=== PATIENT | female | born 1940 | race Caucasian/White ===

== ENCOUNTER 2020-04-29 06:03 | Inpatient (IN) | payer MEDICARE, BC, SELFPAY ==
[2020-04-29] VITALS (9 sets, daily range): BP systolic 114–130; BP diastolic 73–88; PULSE 66–145; RESP 6–28; TEMP 36.2; O2SAT 88–100; BMI 38.9
--- NOTE | 2020-04-29 06:07 | XACV_ITS ---
Ht: 160 cm Wt: 100 kg BSA: 2.16 m2 Gender: Female : 1940 Exam Priority: Routine Procedure(s): Procedure Description: Diagnostic procedure Procedure Description: PCI procedure Procedure Description: Drug Eluting Coronary Stent Procedure Description: PTCA Procedure Description: Coronary Angiography Diagnostic Findings LM has 0% stenosis. Proximal Left Anterior Descending Coronary Artery: Severe 75% stenosis, SUZY: 3 flow. Mid Left Anterior Descending Coronary Artery: Severe 90% stenosis, SUZY: 2 flow. 1st Diag: Severe 85% stenosis, SUZY: 2 flow. pCIRC: Severe 90% stenosis, SUZY: 3 flow. Mid Circumflex Coronary Artery: Severe 90% stenosis, SUZY: 3 flow. dCIRC: Severe 90% stenosis, SUZY: 3 flow. 1st OM: Moderate 50% stenosis, SUZY: 3 flow. pRCA to dRCA: Severe 99% stenosis, SUZY: 0 flow. Coronary angiography shows right dominance. PCI Status: Urgent PCI Indication: NSTE - ACS Interventional Findings Proximal Left Anterior Descending Coronary Artery: 75% stenosis treated with AB TREK 2.50X12 RX BALLOON, MDT R ALPHONSE 3.0X12 TAWANA, and MDT TRIPP EUPHORA RX 3.62S00XK BALLOON. 0% residual stenosis, SUZY: 3 flow. Mid Left Anterior Descending Coronary Artery: 90% stenosis treated with AB TREK 2.50X12 RX BALLOON, AB TREK 2.50X8 RX BALLOON, and MDT R ALPHONSE 3.0X12 TAWANA. 0% residual stenosis, SUZY: 3 flow. Conclusions There is severe coronary artery disease with three vessel disease. Proximal Left Anterior Descending Coronary Artery was treated with two Balloon and Drug Eluting Stent. Mid Left Anterior Descending Coronary Artery was treated with two Balloon and Drug Eluting Stent. 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 Dr. Friedman from CT surgery was consulted and she was thought not to be a good candidate for coronary artery bypass surgery. It is the reason we proceeded with proximal and mid significant LAD lesion PCI. Left circumflex artery is small caliber diffusely diseased artery with multiple tandem lesion and RCA is chronically occluded artery thought to be treated medically. Post PCI patient was transferred to ICU in a relatively stable condition. Recommendations 1-Return to inpatient for close monitoring and routine cath care 2-Risk factor modification for secondary prevention 3-Statin and aspirin 81 mg life--long, if tolerated 4-Patient was pre-loaded with 600 mg of Plavix, continue Plavix 75mg p.o. daily for at least one year. We will assess at the end of one year again to continue if further or not 5-Continue optimal medical management 6-Follow up with Dr. Bishop in four weeks and your primary care in 10 days . Interventional RX Recommendation: PCI w/o planned CABG Diagnostic RX Recommendation: PCI w/o planned CABG Pressures Phase:Rest AO : 131 mmHg / 117 mmHg ( 121 mmHg ) @ 1:56:00 AM 104 mmHg / 90 mmHg ( 97 mmHg ) @ 2:38:00 AM 29 mmHg / 24 mmHg ( 24 mmHg ) @ 2:47:00 AM 105 mmHg / 87 mmHg ( 96 mmHg ) @ 3:10:00 AM Clinical Evaluation EBL: 5mL-10mL Procedural Details Pre-Procedure Time Out. Identified patient by full name and date of as verbalized by the patient/guarantor. Does the consent match the physician's order: N/A Emergent; Informed Consent not obtained due to time critical life threat. Accurate & Complete Informed Consent: N/A Emergent; Informed Consent not obtained due to time critical life threat. Inpatient/Outpatient History & Physical on Chart: N/A Emergent; Informed Consent not obtained due to time critical life threat. If H&P is completed, is and addenduem needed: N/A Emergent; Informed Consent not obtained due to time critical life threat; If yes, is the addendum complete: N/A Emergent; Informed Consent not obtained due to time critical life threat. Visualize and Verify Site with Patient/Guarantor: N/A. Relevant Radiology Images available: N/A Emergent; Informed Consent not obtained due to time critical life threat. Pre-op teaching completed and patient verbalized understanding. The risks, benefits, and alternatives of sedation and/or procedure were discussed by physician. The patient agrees to continue. Procedure started. Correct patient, site and procedure confirmed by cath team. Current diagnosis: STEMI. PERRLA. 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 Lungs clear x 5 lobes. IV Site on Arrival: 20 gauge in the left wrist. IV Fluids: 0.9% NaCl at KVO. 0 mL infused prior to laboratory director. Oxygen started at 15liters/min via 100% non-rebreather mask. right groin was prepped with chloroprep then draped in the usual sterile fashion. right radial was prepped with chloroprep then draped in the usual sterile fashion. Physician notified. Physician arrived. Equipment: 6F - Radial. Cardiac Cath Pack. ACIST Manifold Kit Model BT 2000. Heparinized Saline (2 units/mL), 1000 mL bag. pt unstable at this time. Baseline sample Acquired. HR: 130 BPM. Physician scrubbed in. Immediate Pre-Procedure Time Out. Correct Patient: Yes; Correct Procedure: Yes; Correct Site: Yes; Correct Patient Position: Yes; Correct Supplies: Yes; Dried Flammable Prep: Yes; Blood Products Available: N/A Emergent; Informed Consent not obtained due to time critical life threat;. Lidocaine 1% infiltrated to the right radial. A 6 andorran JR4 catheter in over wire. Multiple views taken of right coronary artery. Catheter out. A 6 andorran CLS 3 catheter in over wire. Multiple views taken of left coronary artery. HAILE Stoddard was relieved by HAILE Rich as monitoring person. Dr. Friedman contacted. Dr. Friedman arrived. Physicians reviewed films. AP pads placed on patient. Inflation number : 1 A AB TREK 2.50X12 RX BALLOON was prepped and advanced across the Mid LAD , then inflated to 16 MELISSA for 0:17 seconds. Inflation number: 1 The AB TREK 2.50X12 RX BALLOON was reinflated across the Prox LAD, to 18 MELISSA for 0:14 seconds. Balloon out. Guideliner inserted. 3.0x12mm stent inserted but removed intact. Runthrough inserted. [place] wire out. Runthrough wire inserted. Runthrough wire out. Inventory is CRD 6FR JL 4 GUIDE. 6 andorran JL 4 guide catheter was inserted over the wire. Guideliner inserted over the runthrough. Inflation number : 2 A AB TREK 2.50X8 RX BALLOON was prepped and advanced across the Mid LAD , then inflated to 8 MELISSA for 0:10 seconds. Inflation number: 3 The AB TREK 2.50X8 RX BALLOON was reinflated across the Mid LAD, to 8 MELISSA for 0:09 seconds. Inflation Number : 4 A MDT R ALPHONSE 3.0X12 TAWANA -Lot Number# [id number] was prepped and advanced across the Mid LAD. The stent was deployed at 16 MELISSA for 0:24 seconds. Stent expiration date 11-13-2021. Stent balloon out over wire. Inflation Number : 2 A MDT R ALPHONSE 3.0X12 TAWANA -Lot Number# [id number] was prepped and advanced across the Prox LAD. The stent was deployed at 18 MELISSA for 0:26 seconds. Stent expiration date: 11-13-2021. Inflation number : 3 A MDT NC EUPHORA RX [id number] BALLOON was prepped and advanced across the Prox LAD , then inflated to 16 MELISSA for 0:21 seconds. Inflation number: 4 The MDT NC EUPHORA RX [id number] BALLOON was reinflated across the Prox LAD, to 16 MELISSA for 0:07 seconds. Redirected the wire to the Circumflex. Balloon out. guideliner, guide and wire out. 1300ml's urine out. TR band placed. Hemostasis obtained. A TR Band was successful obtaining hemostatsis at the Right Radial artery insertion site. Post Procedure: Pulses reassessed and unchanged. PERRLA. 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 No VTE prophylaxis required. ACT drawn. Results 161 seconds. Therapeutic limits - pre-heparin administration 90-150 seconds and monitoring heparin during a vascular procedure >250 seconds. Vital chart was stopped. Medication's Wasted: Lidocaine 1% = 18 mL. Medication's Wasted: Nitro = 49.8 mg. Medication's Wasted: Other = Fentanyl 25mcg. Medication's Wasted: Heparin = 2000 units. Total IV fluids: 53.6 mL. Contrast type used: Visipaque 320 mgI/mL, 500 mL bottle. PCI Indication: STEMI. Post-op diagnosis: STEMI. Complications: None. Estimated blood loss: 5mL-10mL. Procedure completed. Patient transferred by bed to ICU. Site: Right Radial artery Sheath Size: 6 Fr Hemostasis Method: TR Band Hemostasis Success: Successful Procedure Medications Start: 6:36 AM Stop: 6:36 AM Medication: Versed Amount: 0.5 mg Start: 6:37 AM Stop: 6:37 AM Medication: Fentanyl Amount: 25 mcg Route: I.V. Start: 7:03 AM Stop: 7:03 AM Medication: Heparin Amount: 6000 units Route: I.V. Start: 7:07 AM Stop: 7:07 AM Medication: Aggrastat 12.5 mg/250 mL Amount: 50 ml Route: I.V. bolus Start: 7:09 AM Stop: 7:09 AM Medication: Aggrastat 12.5 mg/250 mL Amount: 18 ml/hr Route: I.V. drip Start: 7:15 AM Stop: 7:15 AM Medication: Lopressor (metoprolol) Amount: 5 mg Route: I.V. Start: 7:19 AM Stop: 7:19 AM Medication: Versed Amount: 0.5 mg Route: I.V. Start: 7:20 AM Stop: 7:20 AM Medication: Fentanyl Amount: 25 mcg Route: I.V. Start: 7:45 AM Stop: 7:45 AM Medication: Versed 1 mg and Fentanyl 25 mcg Amount: 1 Route: I.V. Start: 7:56 AM Stop: 7:56 AM Medication: Nitrogylcerin Amount: 100 mcg Route: I.C. Start: 8:21 AM Stop: 8:21 AM Medication: Heparin Amount: 3000 units Route: I.V. I, the attending physician, have reviewed and verified all procedure medications. Yes, all medications given per verbal order Report Signatures Finalized by:Regi Bishop MD on 05/11/2020 5:10:46 PM
--- NOTE | 2020-04-29 06:13 | XRR_ITS ---
PROCEDURE INFORMATION: Exam: XR Chest, 1 View Exam date and time: 04/29/2020 6:27 AM Age: 80 years old Clinical indication: Dyspnea TECHNIQUE: Imaging protocol: XR of the chest Views: 1 view. COMPARISON: No relevant prior studies available. FINDINGS: Lungs: Emphysema Interstitial prominence diffusely. Whether this is chronic is difficult to ascertain. Possible fibrosis. Recommend follow-up two view chest. Pleural space: Unremarkable. No pleural effusion. No pneumothorax. Heart/Mediastinum: Borderline cardiomegaly Bones/joints: Unremarkable. XR/XR chest 1V portable [id number] IMPRESSION: Interstitial prominence diffusely. Whether this is chronic is difficult to ascertain. Possible fibrosis. Recommend follow-up two view chest.
--- NOTE | 2020-04-29 06:13 | ECG_ITS ---
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 Measurements Intervals [place] Rate: 145 P: NC: -1 QRS: 42 QRSD: 64 T: 173 QT: 172 QTc: 268 Interpretive Statements ATRIAL FIBRILLATION WITH RAPID VENTRICULAR RESPONSE MARKED ST DEPRESSION, CONSIDER SUBENDOCARDIAL INJURY [0.2+ mV ST DEPRESSION] ACUTE [place] No previous ECG available for comparison Electronically Signed On 04-29-2020 20:42:14 CDT by Regi Bishop M.D. [id number] f
--- NOTE | 2020-04-29 06:15 | W.ED.CHESTPA ---
HPI - Chest Pain General: Chief Complaint: Chest Pain Stated Complaint: CP Time Seen by Provider: 04/29/20 06:12 History of Present Illness: HPI narrative: Patient presents via EMS as a STEMI. 80-year-old diabetic female. She denies any known history of coronary disease she has had chest pain intermittently the last couple of days. She began having increasing chest pain while at rest this morning EKG shows ST elevation in 2 and aVF. With reciprocal changes. MD complaint: chest pain Pertinent past history: other (Diabetes mellitus) Onset (ago): day(s) Timing of current episode: episodic Prior episodes: Yes Onset: during rest Pain location: substernal and left chest Severity: severe Quality: tightness and heaviness Relieving factors: nothing Exacerbating factors: exertion Associated symptoms: Reports diaphoresis, dyspnea and nausea; Deny fever(s) Treatment prior to arrival: oxygen Review of Systems Const: Reports: diaphoresis; Denies: fever(s), chills or body aches ENMT: Denies: throat pain, ear or mastoid pain, nasal discharge or nasal congestion Card: Denies: chest pain, edema, dyspnea on exertion or orthopnea Resp: Reports: dyspnea GI: Reports: nausea : Denies: flank pain, difficulty voiding, dysuria, urinary frequency or urinary urgency Skin/Breast: Denies: rash or pruritus PFSH ED PFSH: Medical History (Updated 04/29/20 @ 06:20 by Lester Hernandez DO) Diabetes mellitus Hypertension Obesity Surgical History (Updated 04/29/20 @ 06:18 by Lester Hernandez DO) Status post total shoulder arthroplasty Social History (Updated 04/29/20 @ 06:18 by Lester Hernandez DO) Smoking and tobacco status: former smoker Alcohol intake: never Physical Exam Const: COMMON NORMALS: no acute distress GENERAL APPEARANCE: cooperative and comfortable ORIENTATION/CONSCIOUSNESS: Yes awake, Yes oriented to person, Yes oriented to place and Yes oriented to time HENMT: COMMON NORMALS: normocephalic, atraumatic, hearing grossly normal bilaterally, external ears normal, EAC's normal, TM's normal bilaterally, Normal nasal mucous membranes and turbinates present, moist oral mucous membranes and oropharynx normal HEAD & SCALP: normocephalic and atraumatic NOSE: Normal nasal mucous membranes and turbinates present EXTERNAL EAR: Yes external ears normal EXTERNAL AUDITORY CANAL: EAC's normal TYMPANIC MEMBRANE: TM's normal bilaterally Eye: COMMON NORMALS: Equal, round and reactive pupils present, EOMs intact bilaterally, conjunctivae normal and no scleral icterus CONJUNCTIVA: Yes conjunctivae normal PUPIL: Yes Equal, round and reactive pupils present Neck/C-Spine: COMMON NORMALS: full ROM, no lymphadenopathy, supple and no JVD Lymph: LYMPHATIC: no lymphadenopathy noted and no lymphedema noted Resp: COMMON NORMALS: normal respiratory effort, No retractions and No use of accessory muscles AUSCULTATION: crackles Laterality: bilateral (Throughout bilaterally) Cardio: COMMON NORMALS: no JVD, regular rate, regular rhythm and No murmurs present (Cardio) RATE: regular rate RHYTHM: regular rhythm GI: COMMON NORMALS: Soft to palpation and No hepatosplenomegaly present AUSCULTATION: Yes normoactive bowel sounds PALPATION: Yes Soft to palpation, No Tenderness to palpation present (GI), No Guarding due to palpation present (GI) and Yes No hepatosplenomegaly present Extremity: COMMON NORMALS: normal to inspection, capillary refill normal, no clubbing, cyanosis or edema, no calf tenderness and no pedal edema Neuro: SENSORIUM/ORIENTATION: Yes oriented to person, Yes oriented to place and Yes oriented to time Skin: COMMON NORMALS: no rashes or lesions noted GENERAL SKIN EXAM: no rashes or lesions noted Course Vital Signs: Vital signs: Vital Signs Temperature 97.1 F L 04/29/20 06:07 Pulse Rate 68 04/29/20 06:34 Respiratory Rate 18 04/29/20 06:34 Blood Pressure 117/88 04/29/20 06:34 Pulse Oximetry 100 04/29/20 06:34 MDM - Chest Pain MDM Narrative: Medical decision making narrative: Patient is a STEMI patient. Initial appropriate labs were drawn should be given heparin clopidogrel additionally because of the mild hypoxemia and basilar crackles we will go ahead and give Lasix chest x-ray shows congestive heart failure Dr. Benitez is in the department is seen the chest x-ray was consulted with him he will be taking her to the Geropsychologist. Lab Data: Labs: Lab Results 04/29/20 Range/Units 06:10 Specimen Type Arterial Sample Site Radial, right ABG pH 7.30 L (7.35-7.45) ABG pCO2 37.0 (35-45) mmHg ABG pO2 133.0 H (80.0-100.0) mmH g ABG HCO3 18.3 L (22-26) mmol/L ABG O2 Saturation 98.9 ABG Base Excess -7.4 L (-2.0-2.0) mmol/ L [place] Test Pos Hematocrit 39.8 (37-47) % Hgb O2 Saturation 97.3 (95-100) % Carboxyhemoglobin 0.5 (0.4-20.1) %THgb Methemoglobin 1.2 (0.4-1.5) % Total Hemoglobin 13.0 (12-16) g/dL Sodium 141.0 (131-143) mmol/L Potassium 4.1 (3.5-5.0) mmol/L Glucose 256.0 H (70-115) mg/dL Ionized Calcium 1.2 (1.1-1.4) mmol/L O2 Delivery Device Nrb O2 Liters/Min 15.0 % Central Office Inspector ID [email or web address] Discharge Plan Discharge Patient Disposition: Admitted As Inpatient Clinical Impression: ST elevation myocardial infarction (STEMI), Diabetes mellitus, Hypertension, Obesity, Congestive heart failure Condition: Stable Coding Level of Care Code ED Quality Assurance Supervisor Trim for g Fwd Exam Comprehensive
[2020-04-29 06:19] LABS: Arterial Blood Gas Hematocrit 39.8 % (37-47); Base Excess ABG -7.4 mmol/L (-2.0-2.0); Blood Gas Allen Test Pos; Blood Gas Sample Site Radial, right; Blood Gas Sample Type Arterial; Carboxyhemoglobin 0.5 %THgb (0.4-20.1); HCO3 ABG 18.3 mmol/L (22-26); HGB O2 Sat 97.3 % (95-100); Ionized Calcium Level - ABG 1.2 mmol/L (1.1-1.4); Methemoglobin 1.2 % (0.4-1.5); Oxygen Device NRB; Oxygen Saturation ABG 98.9; Potassium Level - ABG 4.1 mmol/L (3.5-5.0)
[2020-04-29] MEDS: FUROsemide 10 mg/mL SDV 10mL 60 MG IVP ×2 (06:27→21:52)
[2020-04-29] MEDS: clopidogrel 300 mg Tablet 600 MG PO (06:27)
[2020-04-29] MEDS: sodium chloride 0.9% 1,000 ML 999 ML IV (06:28)
[2020-04-29] MEDS: heparin 5,000 unit/mL INJ 1 mL 4000 UNIT IVP (06:32)
--- NOTE | 2020-04-29 08:13 | ECG_ITS ---
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 Measurements Intervals [place] Rate: 75 P: 73 AR: 199 QRS: 42 QRSD: 105 T: -2 QT: 373 QTc: 417 Interpretive Statements SINUS RHYTHM Compared to ECG 04/29/2020 06:15:52 Atrial fibrillation no longer present ST (T wave) deviation no longer present Electronically Signed On 04-29-2020 20:45:53 CDT by Regi Bishop M.D. [id number]
--- NOTE | 2020-04-29 08:23 | W.PM.OPSUD ---
Surgery/Procedure H&P Update DATE OF PROCEDURE: April 29, 2020 DATE H&P PERFORMED: 04/29/20 H&P UPDATE INFORMATION: I have examined patient prior to procedure PREOP DIAGNOSIS: stemi/unstable/pulmonary edema PATIENT REASSESSED PRIOR TO SEDATION, WITH NO CHANGE NOTED: Yes AIRWAY EVAL/ANESTHESIA PLAN: ASA II
--- NOTE | 2020-04-29 08:29 | PM.HP ---
Providers/Chief Complaint Chief Complaint: CP History of Present Illness ONESIMO HAMEED is a 80 year old female presented through EMS with chest pain diaphoresis and marked anterolateral ST depression suggestive of ongoing ischemia along with shortness of breath and pulmonary edema. EMS alerted STEMI pager since patient was unstable. She was in A. fib with RVR and not able to breathe. Nitroglycerin in route to drop her blood pressure. I immediately saw the patient in the emergency room and advised IV Lasix. Twelve-lead EKG was suggestive of ongoing ischemia in the anterolateral region with ST elevation in lead III of unknown significance. 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 Her past medical history significant for remote history of smoking diabetes mellitus and uncontrolled hypertension. She denies any prior personal history of coronary artery disease or heart failure. She denies any history of stroke bleeding per rectum or black tarry stool. Patient appears to be unstable with ongoing ischemia requiring urgent cardiac catheterization. Medications/Allergies Home Medications Medication Instructions Recorded Confirmed Last Taken Type Fish Oil 2 cap PO DAILY 04/29/20 04/29/20 Unknown History Vitamin B-12 2 tab PO DAILY 04/29/20 04/29/20 Unknown History lecithin 1,200 mg PO DAILY 04/29/20 04/29/20 Unknown History metformin 500 mg PO BID 04/29/20 04/29/20 Unknown History niacin 1 tab PO DAILY 04/29/20 04/29/20 Unknown History omeprazole 20 mg PO BID 04/29/20 04/29/20 Unknown History Allergies Allergy/AdvReac Type Severity Reaction Status Date / Time aspirin Allergy Unknown Verified 04/29/20 06:11 Jbvdkjn-Ubl-Dje Reductase Allergy Unknown Verified 04/29/20 06:11 Inhibitor PFSH Acute PFSH: Medical History Diabetes mellitus Hypertension Obesity Surgical History Status post total shoulder arthroplasty Social History Smoking and tobacco status: former smoker Alcohol intake: never Vitals/I&O/Wt Last Vital Signs Temp 97.1 F L 04/29/20 06:07 Pulse 68 04/29/20 06:34 Resp 18 04/29/20 06:34 BP 117/88 04/29/20 06:34 Pulse Ox 100 04/29/20 06:34 Weight last 48 hrs Weight 220 lb Physical Exam Narrative: EXAM NARRATIVE: GENERAL: Patient is awake lethargic but diaphoretic NECK: JVD distant HEENT: Pallor and ashen colored HEART: Irregularly irregular S1-S2 gallop LUNGS: Bibasilar mid to lower inspiratory crackles ABDOMEN: Soft, nontender and nondistended. Positive bowel sounds. No guarding, rebound or tenderness. CENTRAL NERVOUS SYSTEM: Grossly nonfocal. EXTREMITIES: Lower extremities without edema bilaterally. Urinary Catheter Management^: Guido: Cath Placed During This Visit: no Data : 04/29/20 10:22 04/29/20 11:00 Attestation for Other Data: I personally reviewed and interpreted the following: Other data: ATRIAL FIBRILLATION WITH RAPID VENTRICULAR RESPONSE MARKED ST DEPRESSION, CONSIDER SUBENDOCARDIAL INJURY [0.2+ mV ST DEPRESSION] ACUTE [place] No previous ECG available for comparison A&P Assessment and plan (1) Coronary artery disease with recent acute coronary syndrome: Patient is presenting with acute coronary syndrome most likely unstable non-ST elevation [place]. She is hemodynamically unstable we will immediately take her to the Oracle Programmer Analyst. She will be loaded with Plavix aspirin statin and IV heparin. Patient has been explained all risk benefit and on letter for the procedure she would like to proceed with it. Status: Acute (2) Pulmonary edema with congestive heart failure: IV Lasix as diuretics for now. Status: Acute (3) Diabetes mellitus: Managed with sliding scale insulin Status: Acute Qualifiers: Diabetes mellitus type: type 2 (4) Hypertension: Currently labile and fluctuating we will keep blood pressure in moderation by using beta-estephanie if needed Status: Acute Attestations Medical Necessity Statement*: I am expecting her stay to cross more than 2 midnights Coding Level of Care Code Acute Picker And Sorter Load And Unload for [facility] Joseluis Diagnoses Coronary artery disease with recent acute coronary syndrome I25.10; I24.9 Pulmonary edema with congestive heart failure I50.1 Diabetes mellitus E11.9 Diabetes mellitus type: type 2 Hypertension I10
[2020-04-29 10:37] LABS: Basophils % 0.2 %; Hematocrit 42.6 % (37.0-47.0); Hemoglobin 13.5 g/dL (11.5-15.3); Lymphocytes # 1.1 10^3/uL (0.8-4.8); Lymphocytes % 5.9 %; Mean Corpuscular HGB Conc 31.7 g/dL (30.0-36.0); Mean Corpuscular Hemoglobin 30.6 pg (28.0-34.0); Mean Corpuscular Volume 96.6 fL (81-99); Mean Platelet Volume 9.9 fL (7.4-10.4); Monocytes # 0.8 10^3/uL (0.2-0.9); Monocytes % 4.1 %; Neutrophils # 17.03 10^3/uL (1.8-7.7); Neutrophils % 89.4 %; Nucleated Red Blood Cells % 0 %; Platelet Count 369 10^3/cmm (130-400); Red Blood Count 4.41 10^6/uL (4.1-5.3); White Blood Count 19.1 10^3/uL (4.0-10.0)
[2020-04-29 11:25] LABS: Alanine Aminotransferase 101 U/L (0-33); Albumin Level 4.2 g/dL (3.5-5.2); Alkaline Phosphatase 85 IU/L (35-105); Anion Gap 18.1 (5-19); Aspartate Amino Transferase 601 U/L (0-32); Blood Urea Nitrogen 29 mg/dL (8-23); Calcium 8.9 mg/dL (8.5-10.5); Carbon Dioxide 23 mmol/L (22-29); Chloride 99 mmol/L (98-107); Globulin 3.3 g/dL (1.3-4.6); Glucose 254 mg/dL (65-115); Osmolality Calculated 286 mOsm/kg (285-295); Potassium 5.1 mmol/L (3.5-5.1); Sodium 135 mmol/L (136-145); Total Bilirubin 0.3 mg/dL (0.15-1.2); Total Protein 7.5 g/dL (6.6-8.7)
[2020-04-29 11:41] LABS: Troponin(5th) Baseline 9001 ng/L (0-10)
--- NOTE | 2020-04-29 11:53 | PC.NURSE ---
Agrastat and TR band Agrastat stopped at 0900 per verbal order by Dr. Bishop. TR band air released 2-3 ml [id number] and is now off. Site is asymptomatic.
--- NOTE | 2020-04-29 12:13 | ECG_ITS ---
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 Measurements Intervals [place] Rate: 74 P: 77 MA: 172 QRS: 44 QRSD: 98 T: 29 QT: 365 QTc: 406 Interpretive Statements SINUS RHYTHM WARNING: DATA QUALITY MAY AFFECT INTERPRETATION Compared to ECG 04/29/2020 09:27:04 No significant changes Electronically Signed On 04-29-2020 20:46:09 CDT by Regi Bishop M.D. [id number]
--- NOTE | 2020-04-29 12:16 | USCV_ITS ---
ONESIMO HAMEED Age: 80 Gender: F : 1940 Exam Date: 04/29/2020 09:41 Ordering Phys: Regi Bishop MD ([email or web address]) Technologist: Sebastian Liu [place]am Location[place] [facility] [place]: NSTIM BP: 133 / 91 HR: 64 Rhythm: Sinus Technical Quality: Fair MEASUREMENTS (Male / Female) Normal Values 2D ECHO LV Diastolic Diameter PLAX 5.0 cm 4.2 - 5.9 / 3.9 - 5.3 cm LV Systolic Diameter PLAX 3.3 cm IVS Diastolic Thickness 1.0 cm 0.6 - 1.0 / 0.6 - 0.9 cm IVS Systolic Thickness 1.6 cm LVPW Diastolic Thickness 1.2 cm 0.6 - 1.0 / 0.6 - 0.9 cm LVPW Systolic Thickness 1.7 cm LVOT Diameter 2.0 cm LV Ejection Fraction 2D Teich 63.5 % LV Ejection Fraction MOD 2C 47.4 % LV Ejection Fraction 2C AL 48.0 % LA Diameter 4.3 cm LA Width 3.7 cm LA Height 4.7 cm RA Width 4.9 cm RA Height 5.3 cm Aorta at Sinotubular Diameter 1.0 cm M-MODE LV Diastolic Diameter MM 5.6 cm 4.2 - 5.9 / 3.9 - 5.3 cm LV Systolic Diameter MM 4.3 cm LV Ejection Fraction MM Teich 48.1 % IVS Diastolic Thickness MM 1.1 cm 0.6 - 1.0 / 0.6 - 0.9 cm IVS Systolic Thickness MM 1.5 cm LVPW Diastolic Thickness MM 1.1 cm 0.6 - 1.0 / 0.6 - 0.9 cm LVPW Systolic Thickness MM 2.0 cm RV Diastolic Diameter MM 1.6 cm Aortic Annulus Diameter 3.4 cm LA Ao Ratio MM 1.3 MV E Point Septal Separation 1.1 cm DOPPLER AV Peak Velocity 118.0 cm/s LVOT Peak Velocity 60.0 cm/s AV Area Cont Eq vti 1.5 cm squared AV Area Cont Eq pk 1.7 cm squared MV E' Velocity 7.0 cm/s TR Peak Velocity 475.0 cm/s TR Peak Gradient 90.2 mmHg TV Peak E Velocity 88.0 cm/s Right Atrial Pressure 3.0 mmHg Pulmonary Artery Systolic Pressu 93.3 mmHg PV Peak Velocity 103.0 cm/s FINDINGS Left Ventricle Mildly increased left ventricular cavity size. Moderately decreased left ventricular systolic function. Left ventricular ejection fraction is estimated at 40 %. Global left ventricular hypokinesis. Grade I/IV diastolic dysfunction (abnormal relaxation filling pattern), normal to mildly elevated filling pressures. Right Ventricle The right ventricle is normal in size and function. Severe pulmonary hypertension, RVSP 93.3 mmHg. Right Atrium The right atrium is normal in size. Left Atrium Moderately increased left atrial size. Mitral Valve Mildly thickened mitral valve. No mitral valve stenosis. Mild mitral valve regurgitation. Aortic Valve Aortic valve sclerosis without stenosis or regurgitation. Tricuspid Valve Mild tricuspid valve regurgitation. Pulmonic Valve Structurally normal pulmonic valve without significant stenosis. There is no pulmonic regurgitation. Pericardium Normal pericardium without effusion. Aorta Normal ascending aorta dimension. CONCLUSIONS 1-Mildly increased left ventricular cavity size. Moderately decreased left ventricular systolic function. Left ventricular ejection fraction is estimated at 40 %. Global left ventricular hypokinesis. Grade I/IV diastolic dysfunction (abnormal relaxation filling pattern), normal to mildly elevated filling pressures. 2-Moderately increased left atrial size. 3-Mild tricuspid valve regurgitation. 4-There is no pericardial effusion. 5-The right ventricle is normal in size and function. Severe pulmonary hypertension, RVSP 93.3 mmHg. 6-Right atrial pressure is around 5 mm of mercury. 7-There are no prior echocardiogram studies to compare. Regi Bishop MD (Electronically Signed) Final Date: 29 April 2020 19:57 S
[2020-04-29 13:42] LABS: Troponin 5 2HR > 10000 ng/L (0-10)
[2020-04-29] MEDS: FUROsemide 10 mg/mL SDV 4mL 40 MG IVP (15:20)
[2020-04-29] MEDS: isosorbide mononitrate 20 mg Tablet PO (15:21)
[2020-04-29 18:20] LABS: Troponin 5 6HR > 10000 ng/L (0-10)
[2020-04-29 21:06] LABS: Blood Urea Nitrogen 30 mg/dL (8-23)
[2020-04-29 21:13] LABS: Glucose Point of Care 213 mg/dL (70-110)
[2020-04-29] MEDS: metoprolol tartrate 25 mg Tablet 12.5 MG PO (21:51)
[2020-04-29] MEDS: potassium chloride ER 10 mEq Tablet 20 MEQ PO (21:51)
[2020-04-30 04:39] LABS: Blood Urea Nitrogen 43 mg/dL (8-23); Calcium 9.5 mg/dL (8.5-10.5); Carbon Dioxide 22 mmol/L (22-29); Chloride 101 mmol/L (98-107); Glucose 174 mg/dL (65-115); Osmolality Calculated 288 mOsm/kg (285-295); Sodium 138 mmol/L (136-145)
[2020-04-30 04:45] LABS: Basophils % 0.2 %; Hematocrit 45.3 % (37.0-47.0); Hemoglobin 14.6 g/dL (11.5-15.3); Lymphocytes # 1.5 10^3/uL (0.8-4.8); Lymphocytes % 12.4 %; Mean Corpuscular HGB Conc 32.2 g/dL (30.0-36.0); Mean Corpuscular Hemoglobin 30.4 pg (28.0-34.0); Mean Corpuscular Volume 94.4 fL (81-99); Mean Platelet Volume 10.2 fL (7.4-10.4); Monocytes % 8.4 %; Neutrophils # 9.72 10^3/uL (1.8-7.7); Neutrophils % 78.6 %; Nucleated Red Blood Cells % 0 %; Platelet Count 232 10^3/cmm (130-400); Red Cell Distribution Width 13.1 % (12.1-15.1); White Blood Count 12.4 10^3/uL (4.0-10.0)
[2020-04-30 07:21] LABS: Glucose Point of Care 174 mg/dL (70-110)
[2020-04-30] MEDS: clopidogrel 75 mg Tablet PO (07:54)
[2020-04-30] MEDS: metoprolol tartrate 25 mg Tablet 12.5 MG PO ×2 (07:54→17:11)
[2020-04-30] MEDS: isosorbide mononitrate 20 mg Tablet PO (07:54)
[2020-04-30 08:00] VITALS: BP 133/62; PULSE 96; RESP 29; O2SAT 97
--- NOTE | 2020-04-30 10:04 | PC.CHAP ---
Pastoral Care Encounter/Spiritual Assessment Type of Contact [] Declined cut off machine unloader visit [] Patient/Family/Request visit [] Outpatient visit [] Follow-up visit [] Physician referral [] Code/Alert [x] Routine visit [] Staff referral [] Actively dying [] Patient sleeping [] Family support [] [] Out of room [] Palliative care [] [] Receiving care in room [] Pre-surgical visit [] Trauma [] Long length of stay [] ICU visit [] Other: Relational/Emotional Strength [] Patient feels connected with others/family/visitors/staff [] Distress [] Loneliness/isolation [] Abandonment Spirituality of Patient [] Person of Magalie [] Attends Uatsdin of their Magalie [] Believes in Prayer [] Reads Bible or Baptism materials [] There are Spiritual issues to be addressed Olive Grower Interventions [x] Prayer [x] Active listening [x] Non-anxious presence [x] Spiritual/emotional support [] Crisis/trauma care [] Spiritual counseling [] Bereavement support [] Provided bereavement packet [] Provided Bible/devotional materials [] Provided toy/stuffed animal, coloring book to patient or family member [] Provided Communion [] Anointing/[place] [] Salvation [x] Completed spiritual assessment [] Other: Impact on Illness or Injury [] Angry [] Fearful [] Anxious [] Often cries [] Exhaustion [] Unable to work [] Unable to attend denominational [] Unable to walk/stand [] Unable to read [] Unable to drive [] Unable to eat/drink [] Unable to sleep [] Unable to be with family [] Patient intubated [] Other: Summary Patient still experiencing discomfort.. Time spent with patient 10 min
[2020-04-30] MEDS: FUROsemide 10 mg/mL SDV 10mL 60 MG IVP ×2 (10:46→22:11)
[2020-04-30] MEDS: acetaminophen 325 mg Tablet 650 MG PO (10:49)
--- NOTE | 2020-04-30 12:47 | PC.RESP ---
PATIENT DOES NOT HAVE A QUALIFYING HX OF LUNG DISEASE AND DOES NOT QUALIFY FOR PULMONARY REHAB AT THIS TIME.
[2020-04-30 13:24] LABS: Glucose Point of Care 254 mg/dL (70-110)
[2020-04-30 14:08] VITALS: TEMP 36.6
[2020-04-30 17:05] LABS: Glucose Point of Care 172 mg/dL (70-110)
--- NOTE | 2020-04-30 18:07 | PM.PN ---
Subjective Subjective: Interval history: Patient appeared to be getting better. She is diuresing adequately and shortness of breath is also improved. She denies chest pain Vitals/I&O/Wt Last Vital Signs Temp 97.8 F 04/30/20 14:08 Pulse 96 04/30/20 08:00 Resp 29 H 04/30/20 08:00 BP 133/62 04/30/20 08:00 Pulse Ox 97 04/30/20 08:00 04/30/20 04/30/20 04/30/20 06:59 14:59 22:59 Intake Total 360 / 360 Output Total 400 / 2350 150 / 150 Balance -400 / -2350 210 / 210 Weight last 48 hrs Weight 220 lb Physical Exam Narrative: EXAM NARRATIVE: GENERAL: Patient is awake lethargic but diaphoretic NECK: JVD distant HEENT: Pallor and ashen colored HEART: Irregularly irregular S1-S2 gallop LUNGS: Bibasilar mid to lower inspiratory crackles ABDOMEN: Soft, nontender and nondistended. Positive bowel sounds. No guarding, rebound or tenderness. CENTRAL NERVOUS SYSTEM: Grossly nonfocal. EXTREMITIES: Lower extremities without edema bilaterally. Urinary Catheter Management^: Guido: Cath Placed During This Visit: yes Reason for Continuing Indwelling Catheter: Accurate Measurement of Urinary Output in Critically Ill Patients Urinary Catheter Date of Insertion: 04/29/20 Data : 04/30/20 03:43 04/30/20 03:43 A&P Assessment and plan (1) Coronary artery disease with recent acute coronary syndrome: Status post PCI to proximal and mid LAD. Patient has multivessel coronary artery disease she was not a good candidate of surgery Dr. Friedman was consulted in the Rn Document Improvement Specialist. She has highly calcified arteries. Post PCI patient went into heart failure treated with diuretics. Continue diuresis as she is feeling better. Metoprolol was added we will titrate. Status: Acute (2) Pulmonary edema with congestive heart failure: Heart failure is improving however she still is volume overloaded and cannot lay flat. Continue IV Lasix 60 mg twice a day with Status: Acute (3) Diabetes mellitus: Managed with sliding scale insulin Status: Acute Qualifiers: Diabetes mellitus type: type 2 (4) Hypertension: Blood pressure is getting under control. Continue current regimen Status: Acute Attestations Medical Necessity Statement*: Patient can move out of the unit. She requires continuation hospitalization for above defined care . Coding Level of Care Code Established Pt Acute Accredited Pharmacy Technician for Chg Fwd Patient Type Established History Expanded Problem Focused Exam Expanded Problem Focused Medical Decision Making Moderate Complexity Diagnoses Coronary artery disease with recent acute coronary syndrome I25.10; I24.9 Pulmonary edema with congestive heart failure I50.1 Diabetes mellitus E11.9 Diabetes mellitus type: type 2 Hypertension I10
[2020-04-30] MEDS: alum-mag-hydroxide-sime 30 mL UDC PO (18:09)
[2020-04-30 20:04] VITALS: PULSE 86; RESP 6; O2SAT 100
[2020-04-30 20:46] LABS: Glucose Point of Care 203 mg/dL (70-110)
[2020-04-30 22:03] VITALS: BP 121/77; PULSE 94; RESP 18; TEMP 36.7; O2SAT 94
[2020-04-30 23:05] VITALS: BP 123/75; PULSE 92; RESP 18; TEMP 36.4; O2SAT 97
[2020-04-30 23:11] VITALS: RESP 6; O2SAT 94
[2020-05-01] VITALS (9 sets, daily range): BP systolic 92–123; BP diastolic 56–72; PULSE 100–108; RESP 6–25; TEMP 36.4–37.2; O2SAT 91–98
[2020-05-01] MEDS: temazepam 15 mg Capsule PO (01:05)
[2020-05-01 05:26] LABS: Blood Urea Nitrogen 44 mg/dL (8-23); Calcium 9.2 mg/dL (8.5-10.5); Carbon Dioxide 20 mmol/L (22-29); Chloride 97 mmol/L (98-107); Glucose 175 mg/dL (65-115); Osmolality Calculated 274 mOsm/kg (285-295); Sodium 131 mmol/L (136-145)
[2020-05-01 05:48] LABS: Anion Gap 18.9 (5-19); Potassium 4.9 mmol/L (3.5-5.1)
[2020-05-01] MEDS: pantoprazole DR 40 mg Tablet PO (08:13)
[2020-05-01] MEDS: isosorbide mononitrate 20 mg Tablet PO (08:13)
[2020-05-01] MEDS: metoprolol tartrate 25 mg Tablet 12.5 MG PO (08:13)
[2020-05-01] MEDS: magnesium hydroxide 30 mL UDC PO (08:13)
[2020-05-01] MEDS: ALPRAZolam 0.25 mg Tablet PO (08:13)
[2020-05-01] MEDS: clopidogrel 75 mg Tablet PO (08:13)
--- NOTE | 2020-05-01 09:55 | PC.NURSE ---
talked to Dr Bishop, pt bp is 98/60 he said to give Lasix and hold metoprolol today pt has 240 intake with 250 out
[2020-05-01] MEDS: FUROsemide 10 mg/mL SDV 10mL 60 MG IVP ×2 (10:01→21:22)
[2020-05-01 11:24] LABS: Glucose Point of Care 226 mg/dL (70-110)
--- NOTE | 2020-05-01 13:58 | P.PN_ITS ---
Subjective Subjective: Interval history: Patient is still complaining of shortness of breath though slowly and slightly better. She remains in sinus rhythm though Vitals/I&O/Wt Last Vital Signs Temp 98.4 F 05/01/20 11:25 Pulse 101 H 05/01/20 11:25 Resp 18 05/01/20 11:25 BP 107/71 05/01/20 11:25 Pulse Ox 92 05/01/20 11:25 04/30/20 05/01/20 05/01/20 22:59 06:59 14:59 Intake Total 250 / 610 250 / 860 360 / 360 Output Total 600 / 750 250 / 250 Balance 250 / 460 -350 / 110 110 / 110 Physical Exam Narrative: EXAM NARRATIVE: GENERAL: Patient is alert, awake and oriented x3. NECK: No jugular vein distension. HEENT: No cyanosis. No icterus. No pallor. HEART: Regular S1 and S2. No murmur, rub or gallop. LUNGS: Inspiratory crackles bilaterally. ABDOMEN: Soft, nontender and nondistended. Positive bowel sounds. No guarding, rebound or tenderness. CENTRAL NERVOUS SYSTEM: Grossly nonfocal. EXTREMITIES: Lower extremities without edema bilaterally. Urinary Catheter Management^: Guido: Cath Placed During This Visit: yes Reason for Continuing Indwelling Catheter: Accurate Measurement of Urinary Output in Critically Ill Patients Urinary Catheter Date of Insertion: 04/29/20 Data : 04/30/20 03:43 05/01/20 04:28 A&P Assessment and plan (1) Coronary artery disease with recent acute coronary syndrome: Status post PCI to proximal mid LAD. Course was complicated by pulmonary edema. She was diuresed with IV Lasix got better yesterday she was shifted to the second floor. This morning she also appeared to be volume loaded but denies chest pain. We will continue to diurese her. Continue aspirin statin beta- estephanie and Plavix Status: Acute (2) Pulmonary edema with congestive heart failure: Patient has systolic decompensated heart failure post ST elevation [place]. I will continue to diurese her with Lasix Status: Acute (3) Diabetes mellitus: Managed with sliding scale insulin Status: Acute Qualifiers: Diabetes mellitus type: type 2 (4) Hypertension: Blood pressure is on the softer side. Continue to monitor. Status: Acute Attestations Medical Necessity Statement*: Patient require continuation hospitalization for above defined care for Coding Level of Care Code Established Pt Acute Technology Engineer for Chg Fwd Patient Type Established History Expanded Problem Focused Exam Expanded Problem Focused Medical Decision Making Moderate Complexity Diagnoses Coronary artery disease with recent acute coronary syndrome I25.10; I24.9 Pulmonary edema with congestive heart failure I50.1 Diabetes mellitus E11.9 Diabetes mellitus type: type 2 Hypertension I10
[2020-05-01 16:41] LABS: Glucose Point of Care 186 mg/dL (70-110)
--- NOTE | 2020-05-01 19:47 | PC.NURSE ---
Rounding: Patient resting in bed watching TV. Patient is alert and oriented. Denies any pain. Patient call light is within reach. Will continue to monitor.
[2020-05-01 21:03] LABS: Glucose Point of Care 156 mg/dL (70-110)
--- NOTE | 2020-05-01 21:38 | PC.NURSE ---
Patient resting in bed on her Bipap. Will continue to monitor.
--- NOTE | 2020-05-02 00:28 | PC.NURSE ---
Patient off bipap at this time.
--- NOTE | 2020-05-02 05:29 | PC.NURSE ---
End of shift: Patient has had uneventful shift. Patient wore her her bipap for a couple hours. Patient has had no complaints of pain. Patient call light in reach will continue to monitor.
[2020-05-02 06:04] LABS: Glucose Point of Care 143 mg/dL (70-110)
[2020-05-02 08:02] VITALS: BP 126/64; PULSE 108; RESP 34; O2SAT 95
--- NOTE | 2020-05-02 08:26 | DCPLANNER ---
Pg 2 of IM updated and explained to pt. No questions, copy provided.
[2020-05-02] MEDS: isosorbide mononitrate 20 mg Tablet PO (09:28)
[2020-05-02] MEDS: FUROsemide 10 mg/mL SDV 10mL 60 MG IVP ×2 (09:28→21:01)
[2020-05-02] MEDS: clopidogrel 75 mg Tablet PO (09:29)
[2020-05-02] MEDS: pantoprazole DR 40 mg Tablet PO (09:29)
[2020-05-02 09:52] VITALS: PULSE 115; RESP 18; O2SAT 95
--- NOTE | 2020-05-02 10:09 | PC.CHAP ---
Pastoral Care Encounter/Spiritual Assessment Type of Contact [] Declined corporate development manager visit [] Patient/Family/Request visit [] Outpatient visit [] Follow-up visit [] Physician referral [] Code/Alert [x] Routine visit [] Staff referral [] Actively dying [] Patient sleeping [] Family support [] [] Out of room [] Palliative care [] [] Receiving care in room [] Pre-surgical visit [] Trauma [] Long length of stay [] ICU visit [] Other: Relational/Emotional Strength [] Patient feels connected with others/family/visitors/staff [] Distress [] Loneliness/isolation [] Abandonment Spirituality of Patient [] Person of Magalie [] Attends Gnosticism of their Magalie [] Believes in Prayer [] Reads Bible or Mormon materials [] There are Spiritual issues to be addressed Guest Room Attendant Interventions [x] Prayer [x] Active listening [x] Non-anxious presence [x] Spiritual/emotional support [] Crisis/trauma care [] Spiritual counseling [] Bereavement support [] Provided bereavement packet [] Provided Bible/devotional materials [] Provided toy/stuffed animal, coloring book to patient or family member [] Provided Communion [] Anointing/[place] [] Salvation [x] Completed spiritual assessment [] Other: Impact on Illness or Injury [] Angry [] Fearful [] Anxious [] Often cries [] Exhaustion [] Unable to work [] Unable to attend sabianism [] Unable to walk/stand [] Unable to read [] Unable to drive [] Unable to eat/drink [] Unable to sleep [] Unable to be with family [] Patient intubated [] Other: Summary patient feeling stronger ... resting well Time spent with patient 10 min
[2020-05-02 11:07] LABS: Glucose Point of Care 241 mg/dL (70-110)
--- NOTE | 2020-05-02 15:42 | PM.PN ---
Subjective Subjective: Interval history: Patient is admitted to hospital with features of acute anterior myocardial infarction, complicated with a pulmonary edema. She was found to have severe pulmonary hypertension by echocardiogram. She had high-grade lesions in the left and descending artery for which she underwent PCI. She seems to have underlying chronic kidney disease. She seems to be responding to diuretics. Denies any chest pain at this point. No arrhythmias on the monitor. No fever, chills or cough. No other specific complaints. Medications: Medication Review Details: Current Medications Acetaminophen (Tylenol) 650 mg PO Q6H PRN PRN Reason: MILD PAIN Last Admin: 04/30/20 10:49 Dose: 650 mg Documented by: Al Hydrox/Mg Hydrox/Simethicone (Maalox) 30 ml PO Q15M PRN PRN Reason: INDIGESTION Last Admin: 04/30/20 18:09 Dose: 30 ml Documented by: Alprazolam (Xanax) 0.25 mg PO TID PRN PRN Reason: ANXIETY Last Admin: 05/01/20 08:13 Dose: 0.25 mg Documented by: Atropine Sulfate (Atropine) 0.5 mg IVP PRN PRN PRN Reason: Symptomatic bradycardia Clopidogrel Bisulfate (Plavix) 75 mg PO DAILY SHERIE Last Admin: 05/02/20 09:29 Dose: 75 mg Documented by: Dextrose (D50w) 25 ml IVP ONCE PRN; Protocol PRN Reason: hypoglycemia protocol Dextrose (D50w) 50 ml IVP PRN PRN; Protocol PRN Reason: hypoglycemia protocol Fentanyl (Sublimaze) 50 mcg IVP PRN PRN PRN Reason: Prior to sheath removal Furosemide (Lasix) 60 mg IVP Q12H SHERIE Last Admin: 05/02/20 09:28 Dose: 60 mg Documented by: Glucagon (Glucagen) 1 mg IM ONCE PRN; Protocol PRN Reason: Adult Acute Hypoglycemia Prot. Dextrose (D5w) 500 mls @ 100 mls/hr IV ONCE PRN; Protocol PRN Reason: Adult Acute Hypoglycemia Prot Insulin Aspart (Novolog) 0 unit SUBCUT TIDWM SHERIE; Protocol Last Admin: 05/02/20 11:18 Dose: 8 unit Documented by: Insulin Aspart (Novolog) 0 unit SUBCUT BEDTIME SHERIE; Protocol Last Admin: 05/01/20 21:23 Dose: 4 unit Documented by: Isosorbide Mononitrate (Ismo) 20 mg PO DAILY [facility] Last Admin: 05/02/20 09:28 Dose: 20 mg Documented by: Magnesium Hydroxide (Milk Of Magnesia) 30 ml PO DAILY PRN PRN Reason: CONSTIPATION Last Admin: 05/01/20 08:13 Dose: 30 ml Documented by: Metoprolol Tartrate (Lopressor) 12.5 mg PO BID [facility] Last Admin: 05/01/20 08:13 Dose: 12.5 mg Documented by: Naloxone HCl (Narcan) 0.1 mg IVP Q2M PRN PRN Reason: RESPIRATORY RATE < 8/MIN Nitroglycerin (Nitrostat) 0.4 mg SUBLINGUAL Q5M PRN PRN Reason: CHEST PAIN Pantoprazole Sodium (Protonix) 40 mg PO DAILY [facility] Last Admin: 05/02/20 09:29 Dose: 40 mg Documented by: Temazepam (Restoril) 15 mg PO BEDTIME PRN PRN Reason: INSOMNIA Last Admin: 05/01/20 01:05 Dose: 15 mg Documented by: Vitals/I&O/Wt Last Vital Signs Temp 99.0 F 05/01/20 23:57 Pulse 115 H 05/02/20 09:52 Resp 34 H 05/02/20 08:02 BP 126/64 05/02/20 08:02 Pulse Ox 95 05/02/20 09:52 05/02/20 05/02/20 05/02/20 06:59 14:59 22:59 Intake Total 120 / 720 480 / 480 Output Total 600 / 1300 650 / 650 Balance -480 / -580 -170 / -170 Physical Exam Narrative: EXAM NARRATIVE: GENERAL: The patient is alert and oriented times three. Not in any acute distress. Obese HEENT: No significant pallor, icterus or lymphadenopathy.Oral cavity: There are no mucous membrane lesions. NECK: Trachea appears to be central. No masses noted. No JVD or thyromegaly appreciated. RESPIRATORY: Chest is symmetrical. No intercostals muscle retraction or any accessory muscle activation. There is no chest wall tenderness. Breath sounds are heard bilaterally. No rales or rhonchi heard. No evidence of any consolidation. BREASTS: Deferred. HEART: The heart sounds are normal. No S3 or S4. No significant murmurs. No pericardial rub ABDOMEN: No vessel pulsations or distention. No tenderness. No organomegaly appreciated. Bowel sounds are normally heard. : Deferred. RECTAL: Deferred. LYMPHATIC: No lymphadenopathy noted in the neck or groin. EXTREMITIES: No edema or cyanosis. No clubbing. MUSCULOSKELETAL: No acute joint deformities or swelling SKIN: There are no significant rashes or ecchymosis NEUROPSYCHIATRIC: The patient is alert and oriented x3. Appears to be in a good mood. No tremors or rigidity noted. Urinary Catheter Management^: Guido: Cath Placed During This Visit: yes Reason for Continuing Indwelling Catheter: Accurate Measurement of Urinary Output in Critically Ill Patients Urinary Catheter Date of Insertion: 04/29/20 Data : 04/30/20 03:43 05/02/20 17:02 Other Labs: Laboratory Last Values WBC 12.4 10^3/uL (4.0-10.0) H 04/30/20 03:43 RBC 4.80 10^6/uL (4.1-5.3) 04/30/20 03:43 Hgb 14.6 g/dL (11.5-15.3) 04/30/20 03:43 Hct 45.3 % (37.0-47.0) 04/30/20 03:43 MCV 94.4 fL (81-99) 04/30/20 03:43 MCH 30.4 pg (28.0-34.0) 04/30/20 03:43 MCHC 32.2 g/dL (30.0-36.0) 04/30/20 03:43 RDW 13.1 % (12.1-15.1) 04/30/20 03:43 Plt Count 232 10^3/cmm (130-400) 04/30/20 03:43 MPV 10.2 fL (7.4-10.4) 04/30/20 03:43 Neut % (Auto) 78.6 % 04/30/20 03:43 Lymph % (Auto) 12.4 % 04/30/20 03:43 [place] % (Auto) 8.4 % 04/30/20 03:43 Eos % (Auto) 0.0 % 04/30/20 03:43 Baso % (Auto) 0.2 % 04/30/20 03:43 Neut # (Auto) 9.72 10^3/uL (1.8-7.7) H 04/30/20 03:43 Lymph # (Auto) 1.5 10^3/uL (0.8-4.8) 04/30/20 03:43 [place] # (Auto) 1.0 10^3/uL (0.2-0.9) H 04/30/20 03:43 Eos # (Auto) 0.0 10^3/uL (0.0-0.8) 04/30/20 03:43 Baso # (Auto) 0.0 10^3/uL (0.0-0.1) 04/30/20 03:43 Nucleated RBC % (auto) 0 % 04/30/20 03:43 Nucleated RBCs # 0.0 /100WBC 04/30/20 03:43 Specimen Type Arterial 04/29/20 06:10 Sample Site Radial, right 04/29/20 06:10 ABG pH 7.30 (7.35-7.45) L 04/29/20 06:10 ABG pCO2 37.0 mmHg (35-45) 04/29/20 06:10 ABG pO2 133.0 mmHg (80.0-100.0) H 04/29/20 06:10 ABG HCO3 18.3 mmol/L (22-26) L 04/29/20 06:10 ABG O2 Saturation 98.9 04/29/20 06:10 ABG Base Excess -7.4 mmol/L (-2.0-2.0) L 04/29/20 06:10 [place] Test Pos 04/29/20 06:10 A-a O2 Gradient Not Reportable 04/29/20 06:10 Hematocrit 39.8 % (37-47) 04/29/20 06:10 Hgb O2 Saturation 97.3 % (95-100) 04/29/20 06:10 Carboxyhemoglobin 0.5 %THgb (0.4-20.1) 04/29/20 06:10 Methemoglobin 1.2 % (0.4-1.5) 04/29/20 06:10 Total Hemoglobin 13.0 g/dL (12-16) 04/29/20 06:10 Sodium 141.0 mmol/L (131-143) 04/29/20 06:10 Potassium 4.1 mmol/L (3.5-5.0) 04/29/20 06:10 Glucose 256.0 mg/dL (70-115) H 04/29/20 06:10 Ionized Calcium 1.2 mmol/L (1.1-1.4) 04/29/20 06:10 O2 Delivery Device Nrb 04/29/20 06:10 O2 Liters/Min 15.0 % 04/29/20 06:10 Manager Of Internal ID [email or web address] 04/29/20 06:10 Sodium 131 mmol/L (136-145) L 05/01/20 04:28 Potassium 4.9 mmol/L (3.5-5.1) 05/01/20 04:28 Chloride 97 mmol/L (98-107) L 05/01/20 04:28 Carbon Dioxide 20 mmol/L (22-29) L 05/01/20 04:28 Anion Gap 18.9 (5-19) 05/01/20 04:28 BUN 44 mg/dL (8-23) H 05/01/20 04:28 Creatinine 1.3 mg/dL (0.5-0.9) H 05/01/20 04:28 GFR Calculation Not Reportable 05/01/20 04:28 Glucose 175 mg/dL (65-115) H 05/01/20 04:28 POC Glucose 241 mg/dL (70-110) 05/02/20 11:03 Calculated Osmolality 274 mOsm/kg (285-295) L 05/01/20 04:28 Calcium 9.2 mg/dL (8.5-10.5) 05/01/20 04:28 Total Bilirubin 0.3 mg/dL (0.15-1.2) 04/29/20 11:00 AST 601 U/L (0-32) H 04/29/20 11:00 ALT 101 U/L (0-33) H 04/29/20 11:00 Alkaline Phosphatase 85 IU/L (35-105) 04/29/20 11:00 Troponin T Baseline 9001 ng/L (0-10) H* 04/29/20 11:00 Troponin T 120 Minute > 91360 ng/L (0-10) H 04/29/20 12:57 Delta Troponin T [id number] ABS# (0-10) H* 04/29/20 12:57 Troponin T Hi Sens 6Hr > 54213 ng/L (0-10) H 04/29/20 17:00 Troponin T Hi Sens 6Hr Delta 999.00317 ng/L (0-12) H* 04/29/20 17:00 Total Protein 7.5 g/dL (6.6-8.7) 04/29/20 11:00 Albumin 4.2 g/dL (3.5-5.2) 04/29/20 11:00 Globulin 3.3 g/dL (1.3-4.6) 04/29/20 11:00 A&P Assessment and plan (1) Pulmonary edema with congestive heart failure: Patient seems to be responding to IV Lasix. We will continue the careful IV diuresis. Status: Acute (2) ST elevation myocardial infarction (STEMI): Patient status post PCI of the LAD lesions. Currently asymptomatic. We will continue the current medications. Status: Acute Qualifiers: Involved coronary artery: LAD coronary artery Qualified Code(s): I21.02 - ST elevation (STEMI) myocardial infarction involving left anterior descending coronary artery (3) Hypertension: Currently normotensive. Continue on the current medications. Status: Acute Qualifiers: Hypertension type: essential hypertension Qualified Code(s): I10 - Essential (primary) hypertension (4) Diabetes mellitus: Will closely monitor the blood sugar. Status: Acute Qualifiers: Diabetes mellitus type: type 2 Diabetes mellitus intermediate insulin use: without intermediate use Diabetes mellitus complication status: with hyperglycemia Qualified Code(s): E11.65 - Type 2 diabetes mellitus with hyperglycemia (5) Acute kidney injury superimposed on chronic kidney disease: Repeat the BMP in the morning and the dose of the diuretics will be adjusted accordingly Status: Acute (6) Severe pulmonary arterial systolic hypertension: The etiology of the severe pulmonary hypertension is not clear at this time. I may go ahead and do a d-dimer, VQ scan and a venous Doppler examination of the lower extremities. Status: Acute Additional A&P Information After reviewing the above and also based on the patient clinical progress, further management decisions will be made. Attestations Medical Necessity Statement*: Patient requires continued hospital stay for close monitoring and further management Coding Level of Care Code Acute Cruise Director for Satish Huggins Diagnoses Pulmonary edema with congestive heart failure I50.1 ST elevation myocardial infarction (STEMI) I21.02 Involved coronary artery: LAD coronary artery Hypertension I10 Hypertension type: essential hypertension Diabetes mellitus E11.65 Diabetes mellitus type: type 2 Diabetes mellitus intermediate insulin use: without intermediate use Diabetes mellitus complication status: with hyperglycemia Acute kidney injury superimposed on chronic kidney disease N17.9; N18.9 Severe pulmonary arterial systolic hypertension I27.21 Time Spent (min) 40
--- NOTE | 2020-05-02 16:15 | USCV_ITS ---
ONESIMO HAMEED Age: 80 Gender: F : 1940 Exam Date: 05/02/2020 16:15 Ordering Phys: Ayesha Shea MD ([email or web address]) Technologist: Leona Waldrop Exam Location: [facility] Indication: POSSIBLE DVT HISTORY: Pulmonary embolism. PROCEDURES: Venous duplex imaging was performed in bilateral lower extremities. The following venous structures were evaluated: common femoral vein, profunda vein, proximal portion of the greater saphenous vein, superficial femoral vein, and the popliteal vein. In addition, the posterior tibial and peroneal trunk were evaluated. Serial compression, augmentation maneuvers, and spectral Doppler flow evaluation were performed. FINDINGS: Normal 2-D Doppler and augmentation and compressibility throughout the lower extremity venous structures. Additional imaging through the proximal calf veins also reveals no thrombus. Limited evaluation of the greater saphenous vein is patent with no thrombus.. CONCLUSIONS No evidence of DVT in the above-mentioned identifiable veins. Dr Ayesha Shea MD [facility] (Electronically Signed) Final Date: 03 May 2020 10:52 S
[2020-05-02 17:05] LABS: Glucose Point of Care 190 mg/dL (70-110)
[2020-05-02 17:40] LABS: D Dimer 2.88 ug/mIFEU (0-0.59)
[2020-05-02 17:43] LABS: Anion Gap 16.2 (5-19); Blood Urea Nitrogen 45 mg/dL (8-23); Calcium 9.3 mg/dL (8.5-10.5); Carbon Dioxide 22 mmol/L (22-29); Chloride 94 mmol/L (98-107); Glucose 166 mg/dL (65-115); Osmolality Calculated 268 mOsm/kg (285-295); Potassium 4.2 mmol/L (3.5-5.1); Sodium 128 mmol/L (136-145)
[2020-05-02] MEDS: metoprolol tartrate 25 mg Tablet 12.5 MG PO (18:54)
[2020-05-02] MEDS: enoxaparin 40 mg/0.4 mL Syringe SUBCUT (18:55)
[2020-05-02 20:06] VITALS: BP 124/69; PULSE 91; RESP 32; TEMP 36.5; O2SAT 97
[2020-05-02 20:15] LABS: Glucose Point of Care 219 mg/dL (70-110)
--- NOTE | 2020-05-02 21:26 | PC.NURSE ---
REPORT RECEIVED FROM OFF GOING NURSE. PT IS RESTING IN BED. PT DENIES PAIN AT THIS TIME. WILL CONTINUE TO MONITOR.
[2020-05-03 00:09] VITALS: BP 127/68; PULSE 104; RESP 28; TEMP 36.6; O2SAT 94
--- NOTE | 2020-05-03 05:34 | PC.NURSE ---
PT STATES THAT THEY HAVE SLEPT WELL. PT RESTING IN BED. VS WNL. WILL CONTINUE TO MONITOR.
[2020-05-03 06:18] LABS: Glucose Point of Care 151 mg/dL (70-110)
[2020-05-03 07:20] VITALS: PULSE 98; O2SAT 94
[2020-05-03 08:01] VITALS: BP 111/59; PULSE 98; RESP 26; TEMP 36.4; O2SAT 97
[2020-05-03 08:21] LABS: Blood Urea Nitrogen 44 mg/dL (8-23); Calcium 9.5 mg/dL (8.5-10.5); Carbon Dioxide 22 mmol/L (22-29); Chloride 98 mmol/L (98-107); Glucose 207 mg/dL (65-115); Osmolality Calculated 280 mOsm/kg (285-295); Sodium 133 mmol/L (136-145)
[2020-05-03 08:56] LABS: Anion Gap 17.2 (5-19); Potassium 4.2 mmol/L (3.5-5.1)
--- NOTE | 2020-05-03 10:05 | XRR_ITS ---
PROCEDURE INFORMATION: Exam: XR Chest, 1 View Exam date and time: 05/03/2020 10:06 AM Age: 80 years old Clinical indication: Dyspnea; Additional info: Lung scan comparison TECHNIQUE: Imaging protocol: XR of the chest Views: 1 view. COMPARISON: CR XR chest 1V portable [id number] 04/29/2020 6:05 AM FINDINGS: Lungs: central pulmonary vasculature is mildly prominent Mild airspace consolidation within the lung bases left greater than right. Pleural space: Pleural effusions left greater than right. Heart/Mediastinum: cardiac silhouette is enlarged. Bones/joints: Shoulder arthroplasty on the left XR/XR chest 1V portable [id number] IMPRESSION: Mild edema with mild basilar consolidation and pleural effusions particularly on the left. Progressive.
[2020-05-03] MEDS: FUROsemide 10 mg/mL SDV 10mL 60 MG IVP (10:23)
[2020-05-03] MEDS: metoprolol tartrate 25 mg Tablet 12.5 MG PO ×2 (10:24→17:31)
[2020-05-03] MEDS: isosorbide mononitrate 20 mg Tablet PO (10:27)
[2020-05-03] MEDS: pantoprazole DR 40 mg Tablet PO (10:27)
[2020-05-03] MEDS: clopidogrel 75 mg Tablet PO (10:27)
[2020-05-03 11:03] LABS: Glucose Point of Care 199 mg/dL (70-110)
[2020-05-03] MEDS: bisacodyl 10 mg Supp PR (14:47)
--- NOTE | 2020-05-03 16:18 | NMR_ITS ---
PROCEDURE INFORMATION: Exam: WA Lung Ventilation and Perfusion Imaging Exam date and time: 05/03/2020 9:19 AM Age: 80 years old Clinical indication: Dyspnea and shortness of breath; Chest pain; Type not specified; Additional info: New pulmonary HTN TECHNIQUE: Imaging protocol: Nuclear pulmonary ventilation with aerosol or gas was performed followed by perfusion. Views: Ventilation acquired with multiple projections. Perfusion acquired with multiple projections. Radiopharmaceutical: 5.5 mCi Tc-99m MAA, IV; 32.7 mCi Tc-99m DTPA, aerosol COMPARISON: CR XR chest 1V portable [id number] 04/29/2020 6:05 AM FINDINGS: Ventilation: Rather heterogeneous ventilation. A decreased ventilation left lung base. Perfusion: Decreased perfusion left lower lobe. No segmental or subsegmental defects. WA/WA pul vent and perfus* [id number] IMPRESSION: Low probability for embolus.
[2020-05-03] MEDS: Fleet Enema 133 mL Enema PR (16:26)
[2020-05-03 17:20] LABS: Glucose Point of Care 207 mg/dL (70-110)
[2020-05-03] MEDS: enoxaparin 40 mg/0.4 mL Syringe SUBCUT (17:28)
[2020-05-03] MEDS: FUROsemide 40 mg Tablet 60 MG PO (17:29)
--- NOTE | 2020-05-03 19:08 | PC.NURSE ---
pt c/o constipation..has not had bowel movement for several days.received order for dulcolax suppository.given with no results obtained.received order for fleets enema.given..pt tolerated well..and pt had 2 large,soft formed,brown bm's.
--- NOTE | 2020-05-03 20:16 | PM.PN ---
Subjective Subjective: Interval history: This patient is feeling better. As she started getting up and moving around, she still has some dyspnea on exertion and fatigue. Apparently she has not been moving around since the hospital admission. She denies any chest pain or palpitation. She had some shortness of PAT is on the monitor. Otherwise no significant symptoms. Medications: Reviewed: Yes Medication Review Details: Current Medications Acetaminophen (Tylenol) 650 mg PO Q6H PRN PRN Reason: MILD PAIN Last Admin: 04/30/20 10:49 Dose: 650 mg Documented by: Al Hydrox/Mg Hydrox/Simethicone (Maalox) 30 ml PO Q15M PRN PRN Reason: INDIGESTION Last Admin: 04/30/20 18:09 Dose: 30 ml Documented by: Atropine Sulfate (Atropine) 0.5 mg IVP PRN PRN PRN Reason: Symptomatic bradycardia Clopidogrel Bisulfate (Plavix) 75 mg PO DAILY [facility] Last Admin: 05/03/20 10:27 Dose: 75 mg Documented by: Dextrose (D50w) 25 ml IVP ONCE PRN; Protocol PRN Reason: hypoglycemia protocol Dextrose (D50w) 50 ml IVP PRN PRN; Protocol PRN Reason: hypoglycemia protocol Enoxaparin Sodium (Lovenox) 40 mg SUBCUT Q24H [facility] Last Admin: 05/03/20 17:28 Dose: 40 mg Documented by: Furosemide (Lasix) 60 mg PO BID@08,16 [facility] Last Admin: 05/03/20 17:29 Dose: 60 mg Documented by: Glucagon (Glucagen) 1 mg IM ONCE PRN; Protocol PRN Reason: Adult Acute Hypoglycemia Prot. Dextrose (D5w) 500 mls @ 100 mls/hr IV ONCE PRN; Protocol PRN Reason: Adult Acute Hypoglycemia Prot Insulin Aspart (Novolog) 0 unit SUBCUT TIDWM [facility]; Protocol Last Admin: 05/03/20 17:33 Dose: 6 unit Documented by: Insulin Aspart (Novolog) 0 unit SUBCUT BEDTIME [facility]; Protocol Last Admin: 05/02/20 21:02 Dose: 6 unit Documented by: Isosorbide Mononitrate (Ismo) 20 mg PO DAILY [facility] Last Admin: 05/03/20 10:27 Dose: 20 mg Documented by: Magnesium Hydroxide (Milk Of Magnesia) 30 ml PO DAILY PRN PRN Reason: CONSTIPATION Last Admin: 05/01/20 08:13 Dose: 30 ml Documented by: Magnesium Hydroxide (Milk Of Magnesia) 30 ml PO BID PRN PRN Reason: CONSTIPATION Metoprolol Tartrate (Lopressor) 12.5 mg PO BID [facility] Last Admin: 05/03/20 17:31 Dose: 12.5 mg Documented by: Naloxone HCl (Narcan) 0.1 mg IVP Q2M PRN PRN Reason: RESPIRATORY RATE < 8/MIN Nitroglycerin (Nitrostat) 0.4 mg SUBLINGUAL Q5M PRN PRN Reason: CHEST PAIN Pantoprazole Sodium (Protonix) 40 mg PO DAILY [facility] Last Admin: 05/03/20 10:27 Dose: 40 mg Documented by: Vitals/I&O/Wt Last Vital Signs Temp 97.5 F L 05/03/20 08:01 Pulse 98 05/03/20 08:01 Resp 26 H 05/03/20 08:01 BP 111/59 05/03/20 08:01 Pulse Ox 97 05/03/20 08:01 05/03/20 05/03/20 05/03/20 06:59 14:59 22:59 Intake Total 480 / 480 360 / 840 Output Total 1100 / 2075 1000 / 1000 Balance -1100 / -1305 -520 / -520 360 / -160 Physical Exam Narrative: EXAM NARRATIVE: GENERAL: The patient is alert and oriented times three. Not in any acute distress. Obese HEENT: No significant pallor, icterus or lymphadenopathy.Oral cavity: There are no mucous membrane lesions. NECK: Trachea appears to be central. No masses noted. No JVD or thyromegaly appreciated. RESPIRATORY: Chest is symmetrical. No intercostals muscle retraction or any accessory muscle activation. There is no chest wall tenderness. Breath sounds are heard bilaterally. No rales or rhonchi heard. No evidence of any consolidation. BREASTS: Deferred. HEART: The heart sounds are normal. No S3 or S4. No significant murmurs. No pericardial rub ABDOMEN: No vessel pulsations or distention. No tenderness. No organomegaly appreciated. Bowel sounds are normally heard. : Deferred. RECTAL: Deferred. LYMPHATIC: No lymphadenopathy noted in the neck or groin. EXTREMITIES: No edema or cyanosis. No clubbing. MUSCULOSKELETAL: No acute joint deformities or swelling SKIN: There are no significant rashes or ecchymosis NEUROPSYCHIATRIC: The patient is alert and oriented x3. Appears to be in a good mood. No tremors or rigidity noted. Urinary Catheter Management^: Guido: Cath Placed During This Visit: yes Reason for Continuing Indwelling Catheter: Accurate Measurement of Urinary Output in Critically Ill Patients Urinary Catheter Date of Insertion: 04/29/20 Data : 04/30/20 03:43 05/03/20 07:50 A&P Assessment and plan (1) Pulmonary edema with congestive heart failure: I may discontinue the IV Lasix and start her on Lasix 60 mg p.o. twice daily. I also may start her on Entresto 1 tablet p.o. twice daily in the morning. We will watch the blood pressure closely. We will repeat the BMP and BNP in the morning Status: Acute (2) ST elevation myocardial infarction (STEMI): Patient status post PCI of the LAD lesions. Currently asymptomatic. We will continue the current medications. Status: Acute Qualifiers: Involved coronary artery: LAD coronary artery Qualified Code(s): I21.02 - ST elevation (STEMI) myocardial infarction involving left anterior descending coronary artery (3) Hypertension: Currently normotensive. Continue on the current medications. Status: Acute Qualifiers: Hypertension type: essential hypertension Qualified Code(s): I10 - Essential (primary) hypertension (4) Diabetes mellitus: Will closely monitor the blood sugar. Status: Acute Qualifiers: Diabetes mellitus complication status: with hyperglycemia Diabetes mellitus penitentiary insulin use: without penitentiary use Diabetes mellitus type: type 2 Qualified Code(s): E11.65 - Type 2 diabetes mellitus with hyperglycemia (5) Acute kidney injury superimposed on chronic kidney disease: Kidney function seems to be stable. We will repeat the BMP today. Status: Acute (6) Severe pulmonary arterial systolic hypertension: The VQ scan and the venous Doppler examination were unremarkable. D-dimer was found to be elevated. This could be related to the congestive heart failure and myocardial infarction. Status: Acute (7) Elevated white blood cell count: Etiology is unclear. Will go ahead and do a UA today. Do a CBC in the morning. Status: Acute Additional A&P Information After reviewing the above and also based on the patient clinical progress, further management decisions will be made. Attestations Medical Necessity Statement*: Patient requires continued hospital stay for close monitoring and further management Coding Level of Care Code Acute Senior Account Executive for Chg Fwd Medical Decision Making Moderate Complexity Diagnoses Pulmonary edema with congestive heart failure I50.1 ST elevation myocardial infarction (STEMI) I21.02 Involved coronary artery: LAD coronary artery Hypertension I10 Hypertension type: essential hypertension Diabetes mellitus E11.65 Diabetes mellitus complication status: with hyperglycemia Diabetes mellitus penitentiary insulin use: without local company intermodal truck driver use Diabetes mellitus type: type 2 Acute kidney injury superimposed on chronic kidney disease N17.9; N18.9 Severe pulmonary arterial systolic hypertension I27.21 Elevated white blood cell count D72.829 Time Spent (min) 35
[2020-05-03 20:26] LABS: Glucose Point of Care 279 mg/dL (70-110)
[2020-05-03 20:45] VITALS: PULSE 98; O2SAT 95
[2020-05-03] MEDS: sacubitril/valsartan 24-26 mg Tablet 1 EACH PO (21:07)
[2020-05-03] MEDS: acetaminophen 325 mg Tablet 650 MG PO (23:58)
--- NOTE | 2020-05-04 03:22 | PC.NURSE ---
PT C/O PAIN IN SHOULDERS 05/12. PRN TYLENOL WAS GIVEN. WILL CONTINUE TO MONITOR.
[2020-05-04 05:35] LABS: Basophils % 0.4 %; Eosinophils # 0.2 10^3/uL (0.0-0.8); Eosinophils % 1.8 %; Hematocrit 30.9 % (37.0-47.0); Lymphocytes # 1.4 10^3/uL (0.8-4.8); Lymphocytes % 17.5 %; Mean Corpuscular HGB Conc 32.4 g/dL (30.0-36.0); Mean Corpuscular Volume 95.7 fL (81-99); Mean Platelet Volume 9.8 fL (7.4-10.4); Monocytes # 0.8 10^3/uL (0.2-0.9); Monocytes % 9.2 %; Neutrophils # 5.84 10^3/uL (1.8-7.7); Neutrophils % 70.7 %; Nucleated Red Blood Cells % 0 %; Platelet Count 301 10^3/cmm (130-400); Red Blood Count 3.23 10^6/uL (4.1-5.3); Red Cell Distribution Width 12.8 % (12.1-15.1); White Blood Count 8.3 10^3/uL (4.0-10.0)
--- NOTE | 2020-05-04 05:43 | PC.NURSE ---
PT STATES THAT THEY HAD A GOOD NIGHT. PT DENIES PAIN AT THIS TIME. VS WNL. WILL GIVE REPORT TO ON COMING NURSE.
[2020-05-04 06:02] LABS: Bilirubin Urine Neg (NEGATIVE); Blood Urine Neg (Negative); Glucose Urine UA Norm (Normal); Ketones Urine Negative (Negative); Leukocyte Esterase Urine Trace (Negative); Nitrate Urine Negative (Negative); Protein Urine Neg (Negative); Urine Appearance Hazy (CLEAR); Urine Color Yellow (Yellow); Urobilinogen Urine Norm (Negative); pH Urine 5 (5-7)
[2020-05-04 06:02] LABS: Anion Gap 16.7 (5-19); Blood Urea Nitrogen 41 mg/dL (8-23); Carbon Dioxide 25 mmol/L (22-29); Chloride 95 mmol/L (98-107); Creatinine Clr Calc Pharmacy 51.3862; Glucose 184 mg/dL (65-115); NT Pro B Type Natriuretic Pept 4944 pg/mL (0-450); Osmolality Calculated 278 mOsm/kg (285-295); Potassium 3.7 mmol/L (3.5-5.1); Sodium 133 mmol/L (136-145)
[2020-05-04 06:03] LABS: Bacteria Urine 3+; RBC Urine 0-4 /hpf (0-2); Squamous Epithelial Cell Urine 0-4 (0-5); Transitional Epi Cells Urine 0-4 /hpf
[2020-05-04 06:04] LABS: Add Urine Culture? Yes; Hyaline Casts Urine 0-4; Mucus Urine TRACE
[2020-05-04 06:11] LABS: Glucose Point of Care 197 mg/dL (70-110)
[2020-05-04 08:00] VITALS: BP 135/64; PULSE 94; RESP 30; O2SAT 94
[2020-05-04] MEDS: FUROsemide 40 mg Tablet 60 MG PO (08:15)
[2020-05-04] MEDS: isosorbide mononitrate 20 mg Tablet PO (08:22)
[2020-05-04] MEDS: metoprolol tartrate 25 mg Tablet 12.5 MG PO ×2 (08:22→17:35)
[2020-05-04] MEDS: clopidogrel 75 mg Tablet PO (08:24)
[2020-05-04] MEDS: sacubitril/valsartan 24-26 mg Tablet 1 EACH PO ×2 (08:24→17:35)
[2020-05-04] MEDS: pantoprazole DR 40 mg Tablet PO (08:25)
--- NOTE | 2020-05-04 08:28 | DCPLANNER ---
Pg 2 of IM updated and reviewed with pt. No questions, copy provided.
[2020-05-04 09:54] VITALS: O2SAT 90; O2SAT 93
[2020-05-04 11:30] LABS: Glucose Point of Care 225 mg/dL (70-110)
[2020-05-04 11:49] LABS: Urine Color Straw (Yellow)
[2020-05-04 11:50] LABS: Specific Gravity, Urine 1.015 (1.005-1.030); Urine Appearance Hazy (CLEAR); pH Urine 5 (5-7)
[2020-05-04 11:51] LABS: Bilirubin Urine Neg (NEGATIVE); Blood Urine 2+ (Negative); Glucose Urine UA Norm (Normal); Ketones Urine Negative (Negative); Leukocyte Esterase Urine 1+ (Negative); Nitrate Urine Negative (Negative); Protein Urine Neg (Negative); Urobilinogen Urine Norm (Negative)
[2020-05-04 12:03] LABS: Add Urine Culture? Yes; Bacteria Urine 3+; RBC Urine 0-4 /hpf (0-2); Squamous Epithelial Cell Urine RARE (0-5); WBC Urine 80-100 /hpf (0-5)
--- NOTE | 2020-05-04 13:04 | PM.PN ---
Subjective Subjective: Interval history: Patient started ambulating today again. She became stably short of breath. Her O2 saturation dropped into 89-90. Patient denies any fever or chills. No cough. The urine analysis revealed features of UTI. Culture and sensitivity pending. Medications: Reviewed: Yes Medication Review Details: Current Medications Acetaminophen (Tylenol) 650 mg PO Q6H PRN PRN Reason: MILD PAIN Last Admin: 05/03/20 23:58 Dose: 650 mg Documented by: Al Hydrox/Mg Hydrox/Simethicone (Maalox) 30 ml PO Q15M PRN PRN Reason: INDIGESTION Last Admin: 04/30/20 18:09 Dose: 30 ml Documented by: Atropine Sulfate (Atropine) 0.5 mg IVP PRN PRN PRN Reason: Symptomatic bradycardia Clopidogrel Bisulfate (Plavix) 75 mg PO DAILY [facility]PL[facility] Last Admin: 05/04/20 08:24 Dose: 75 mg Documented by: Dextrose (D50w) 25 ml IVP ONCE PRN; Protocol PRN Reason: hypoglycemia protocol Dextrose (D50w) 50 ml IVP PRN PRN; Protocol PRN Reason: hypoglycemia protocol Enoxaparin Sodium (Lovenox) 40 mg SUBCUT Q24H [facility]PLACED [facility] Last Admin: 05/03/20 17:28 Dose: 40 mg Documented by: Furosemide (Lasix) 40 mg IVP Q8H [facility] Glucagon (Glucagen) 1 mg IM ONCE PRN; Protocol PRN Reason: Adult Acute Hypoglycemia Prot. Dextrose (D5w) 500 mls @ 100 mls/hr IV ONCE PRN; Protocol PRN Reason: Adult Acute Hypoglycemia Prot Insulin Aspart (Novolog) 0 unit SUBCUT TIDWM [facility]; Protocol Last Admin: 05/04/20 11:38 Dose: 8 unit Documented by: Insulin Aspart (Novolog) 0 unit SUBCUT BEDTIME [facility]; Protocol Last Admin: 05/03/20 20:25 Dose: 10 unit Documented by: Isosorbide Mononitrate (Ismo) 20 mg PO DAILY [facility]PL[facility] Last Admin: 05/04/20 08:22 Dose: 20 mg Documented by: Magnesium Hydroxide (Milk Of Magnesia) 30 ml PO DAILY PRN PRN Reason: CONSTIPATION Last Admin: 05/01/20 08:13 Dose: 30 ml Documented by: Magnesium Hydroxide (Milk Of Magnesia) 30 ml PO BID PRN PRN Reason: CONSTIPATION Metoprolol Tartrate (Lopressor) 12.5 mg PO BID REPLACED [facility] Last Admin: 05/04/20 08:22 Dose: 12.5 mg Documented by: Naloxone HCl (Narcan) 0.1 mg IVP Q2M PRN PRN Reason: RESPIRATORY RATE < 8/MIN Nitroglycerin (Nitrostat) 0.4 mg SUBLINGUAL Q5M PRN PRN Reason: CHEST PAIN Pantoprazole Sodium (Protonix) 40 mg PO DAILY [facility]PL[facility] Last Admin: 05/04/20 08:25 Dose: 40 mg Documented by: Sacubitril/Valsartan (Entresto 24-26 Mg) 1 each PO BID REPLACED BY [facility] Last Admin: 05/04/20 08:24 Dose: 1 each Documented by: Trimethoprim/Sulfamethoxazole (Bactrim Ds) 1 tab PO BID REPLACED BY [facility]; Protocol Vitals/I&O/Wt Last Vital Signs Temp 97.5 F L 05/03/20 08:01 Pulse 94 05/04/20 08:00 Resp 30 H 05/04/20 08:00 BP 135/64 05/04/20 08:00 Pulse Ox 93 05/04/20 09:54 05/03/20 05/04/20 05/04/20 22:59 06:59 14:59 Intake Total 720 / 1200 240 / 240 Output Total 1200 / 2200 Balance 720 / 200 -1200 / -1000 240 / 240 Physical Exam Narrative: EXAM NARRATIVE: GENERAL: The patient is alert and oriented times three. Not in any acute distress. Obese HEENT: No significant pallor, icterus or lymphadenopathy.Oral cavity: There are no mucous membrane lesions. NECK: Trachea appears to be central. No masses noted. No JVD or thyromegaly appreciated. RESPIRATORY: Chest is symmetrical. No intercostals muscle retraction or any accessory muscle activation. There is no chest wall tenderness. Breath sounds are heard bilaterally. No rales or rhonchi heard. No evidence of any consolidation. BREASTS: Deferred. HEART: The heart sounds are normal. No S3 or S4. No significant murmurs. No pericardial rub ABDOMEN: No vessel pulsations or distention. No tenderness. No organomegaly appreciated. Bowel sounds are normally heard. : Deferred. RECTAL: Deferred. LYMPHATIC: No lymphadenopathy noted in the neck or groin. EXTREMITIES: No edema or cyanosis. No clubbing. MUSCULOSKELETAL: No acute joint deformities or swelling SKIN: There are no significant rashes or ecchymosis NEUROPSYCHIATRIC: The patient is alert and oriented x3. Appears to be in a good mood. No tremors or rigidity noted. Urinary Catheter Management^: Guido: Cath Placed During This Visit: yes, but has since been removed by the nurse Reason for Continuing Indwelling Catheter: Accurate Measurement of Urinary Output in Critically Ill Patients Urinary Catheter Date of Insertion: 04/29/20 Date Urinary Catheter Removed: 05/03/20 Time Urinary Catheter Discontinued: 18:30 Data : 05/04/20 05:21 05/04/20 05:21 A&P Assessment and plan (1) Pulmonary edema with congestive heart failure: I may restart the IV Lasix 60 mg every 8 hours x3. Hold off on the p.o. Lasix. Status: Acute (2) ST elevation myocardial infarction (STEMI): Patient status post PCI of the LAD lesions. Currently asymptomatic. We will continue the current medications. Status: Acute Qualifiers: Involved coronary artery: LAD coronary artery Qualified Code(s): I21.02 - ST elevation (STEMI) myocardial infarction involving left anterior descending coronary artery (3) Hypertension: Currently normotensive. Continue on the current medications. Status: Acute Qualifiers: Hypertension type: essential hypertension Qualified Code(s): I10 - Essential (primary) hypertension (4) Diabetes mellitus: Will closely monitor the blood sugar. Status: Acute Qualifiers: Diabetes mellitus complication status: with hyperglycemia Diabetes mellitus ocean transportation intermediary insulin use: without ocean transportation intermediary use Diabetes mellitus type: type 2 Qualified Code(s): E11.65 - Type 2 diabetes mellitus with hyperglycemia (5) Acute kidney injury superimposed on chronic kidney disease: Kidney function seems to be stable. We will repeat the BMP today. Status: Acute (6) Severe pulmonary arterial systolic hypertension: In view of her significant shortness of breath with activities. If she continues to have the shortness of breath, we may ask for a pulmonary consult in the morning. Status: Acute (7) Elevated white blood cell count: Only the white cell count returned to normal. Status: Acute (8) Urinary tract infection: Status: Acute Attestations Medical Necessity Statement*: I was prior to discharge her home today. However because of extreme shortness of breath with activities, he held the discharge. We will try to maximize a diuretic. Consider pulmonary consult in the morning. Repeat BMP in the morning. Coding Level of Care Code Acute Generation Engineering Technologist for Chg Fwd Diagnoses Pulmonary edema with congestive heart failure I50.1 ST elevation myocardial infarction (STEMI) I21.02 Involved coronary artery: LAD coronary artery Hypertension I10 Hypertension type: essential hypertension Diabetes mellitus E11.65 Diabetes mellitus complication status: with hyperglycemia Diabetes mellitus chcf insulin use: without chcf use Diabetes mellitus type: type 2 Acute kidney injury superimposed on chronic kidney disease N17.9; N18.9 Severe pulmonary arterial systolic hypertension I27.21 Elevated white blood cell count D72.829 Urinary tract infection N39.0
[2020-05-04 16:07] VITALS: BP 106/62; PULSE 88; RESP 21; TEMP 36.4; O2SAT 94
[2020-05-04] MEDS: sulfamethoxazole-trimeth DS 160-800 mg Tablet 1 TAB PO (16:13)
[2020-05-04] MEDS: FUROsemide 10 mg/mL SDV 10mL 60 MG IVP (16:15)
[2020-05-04 16:44] LABS: Glucose Point of Care 163 mg/dL (70-110)
[2020-05-04 16:52] VITALS: BP 102/75; PULSE 96; RESP 24; TEMP 36.6; O2SAT 96
[2020-05-04] MEDS: enoxaparin 40 mg/0.4 mL Syringe SUBCUT (17:34)
[2020-05-04 19:40] VITALS: BP 107/66; PULSE 92; RESP 24; TEMP 36.7; O2SAT 92
[2020-05-04 20:06] LABS: Glucose Point of Care 269 mg/dL (70-110)
--- NOTE | 2020-05-04 21:34 | PC.NURSE ---
REPORT RECEIVED FROM OFF GOING NURSE. PT IS RESTING IN BED. PT DENIES PAIN AT THIS TIME. WILL CONTINUE TO MONITOR.
[2020-05-04 23:20] VITALS: BP 112/89; PULSE 91; RESP 22; TEMP 36.9; O2SAT 94
[2020-05-05] MEDS: FUROsemide 10 mg/mL SDV 10mL 60 MG IVP ×3 (02:08→17:03)
[2020-05-05 03:05] VITALS: BP 106/64; PULSE 98; RESP 23; TEMP 36.4; O2SAT 92
[2020-05-05 06:17] LABS: Glucose Point of Care 174 mg/dL (70-110)
[2020-05-05 06:31] LABS: Blood Urea Nitrogen 38 mg/dL (8-23); Calcium 9.4 mg/dL (8.5-10.5); Carbon Dioxide 23 mmol/L (22-29); Chloride 95 mmol/L (98-107); Glucose 168 mg/dL (65-115); Osmolality Calculated 275 mOsm/kg (285-295); Sodium 132 mmol/L (136-145)
--- NOTE | 2020-05-05 06:42 | PC.NURSE ---
PT STATES THAT THEY RESTED WELL. DENIES PAIN AT THIS TIME. VS WNL. WILL GIVE REPORT TO ON COMING NURSE.
[2020-05-05] MEDS: sulfamethoxazole-trimeth DS 160-800 mg Tablet 1 TAB PO ×2 (08:32→17:06)
[2020-05-05] MEDS: pantoprazole DR 40 mg Tablet PO (08:32)
[2020-05-05] MEDS: clopidogrel 75 mg Tablet PO (08:32)
[2020-05-05] MEDS: sacubitril/valsartan 24-26 mg Tablet 1 EACH PO ×2 (08:32→17:06)
[2020-05-05] MEDS: metoprolol tartrate 25 mg Tablet 12.5 MG PO ×2 (08:32→17:05)
[2020-05-05] MEDS: isosorbide mononitrate 20 mg Tablet PO (08:32)
[2020-05-05 08:48] VITALS: PULSE 77; O2SAT 97
[2020-05-05 11:31] LABS: Glucose Point of Care 259 mg/dL (70-110)
--- NOTE | 2020-05-05 14:00 | PFTS_ITS ---
Date of Study:05/05/20 Date of Dictation: MECHANICS: Forced vital capacity (FVC) is reduced. Forced expiratory volume in one second (FEV1) is reduced. FEV1/FVC is normal. FLOW VOLUME LOOP: Narrow. LUNG VOLUMES: Not performed DIFFUSING CAPACITY FOR CARBON MONOXIDE: Not performed INTERPRETATION: Spirometry is consistent with moderate restriction. There is no postbronchodilator response. MTDD
[2020-05-05 16:00] VITALS: BP 122/71; PULSE 100; RESP 15; TEMP 36.7; O2SAT 96
[2020-05-05 16:48] LABS: Glucose Point of Care 177 mg/dL (70-110)
[2020-05-05] MEDS: enoxaparin 40 mg/0.4 mL Syringe SUBCUT (17:04)
[2020-05-05] MEDS: magnesium hydroxide 30 mL UDC PO (17:11)
--- NOTE | 2020-05-05 18:10 | P.DS_ITS ---
Discharge Providers Date of Admission: 04/29/20 08:33 Date of Discharge: May 05, 2020 Attending Provider at Admission: Regi Bishop MD Attending Provider at Discharge: Regi Bishop MD Primary Care Provider: Ayleen Moreno MD Diagnoses at Discharge Discharge Diagnosis (1) ST elevation myocardial infarction (STEMI): Status: Acute Problem details: Patient presented with features of acute anterior wall CA. She underwent primary PCI of the LAD lesions by Dr. Bishop. Qualifiers: Involved coronary artery: LAD coronary artery Qualified Code(s): I21.02 - ST elevation (STEMI) myocardial infarction involving left anterior descending coronary artery (2) Pulmonary edema with congestive heart failure: Status: Acute Problem details: Most likely this is related to acute ischemia. She was treated with IV diuretics. Symptomatically improved. (3) Hypertension: Status: Acute Problem details: The antihypertensive medications were optimized during the hospital stay. Qualifiers: Hypertension type: essential hypertension Qualified Code(s): I10 - Essential (primary) hypertension (4) Diabetes mellitus: Status: Acute Problem details: The blood sugar is fairly under control. She was treated with as needed insulin. Qualifiers: Diabetes mellitus complication status: with hyperglycemia Diabetes mellitus residential insulin use: without tank terminal gauger use Diabetes mellitus type: type 2 Qualified Code(s): E11.65 - Type 2 diabetes mellitus with hyperglycemia (5) Acute kidney injury superimposed on chronic kidney disease: Status: Acute Problem details: Her kidney function remained fairly stable. The latest BUN was 38 with a creatinine of 1.2. (6) Severe pulmonary arterial systolic hypertension: Status: Acute Problem details: Patient is echocardiogram revealed features of severe pulmonary hypertension with a pulmonary artery peak systolic pressure of 92 mmHg. She has a history of rheumatoid arthritis. Exact etiology of the pulmonary hypertension is not clear. Left ventricular diastolic dysfunction and diastolic heart failure could be a contributing factor. Stoker Mechanic, Dr. Mariscal was consulted. The recommendation was to evaluate for any continued tissue disorder. It was thought to be appropriate to do further work-up as an outpatient. (7) Elevated white blood cell count: Status: Acute Problem details: Possibly due to the UTI Qualifiers: Leukocytosis type: other Qualified Code(s): D72.828 - Other elevated white blood cell count (8) Urinary tract infection: Status: Acute Problem details: I may start the patient on Bactrim DS 1 tablet p.o. twice daily. Urine culture and sensitivities pending. Qualifiers: Hematuria presence: without hematuria Urinary tract infection type: site unspecified Qualified Code(s): N39.0 - Urinary tract infection, site not specified Other Information Additional DC diagnoses/information: Since the patient's overall functional status seems to be stable, it is thought to be appropriate to discharge her home today. She was evaluated for home oxygen and did not qualify. A PFT was done and the results are pending. Her cardiovascular status seems to be stable. She will be seen in the [facility] by the nurse practitioner, Sierra Waggoner on next . She will be seen by Dr. Bishop in 3 weeks Reason for Visit Reason for Visit: CP Hospital Course Hospital Course: This 80-year-old white female with a history of hypertension, type 2 diabetes presented with chest pain, profuse sweating and shortness of breath. Clinical features are consistent with unstable angina. She was evaluated by Dr. Bishop and was taken to the cardiac Draw Furnace Tender. She underwent cardiac catheterization which revealed severe three-vessel coronary disease. She was evaluated by Dr. Friedman for possible surgical intervention. She was not found to be an ideal candidate for surgical intervention. At this point Dr. Flor performed PCI of the LAD lesion . She was admitted to the telemetry floor. While being in the telemetry floor, patient went into pulmonary edema. She was placed on BiPAP for a while. She was treated with the diuretics and other symptomatic measures. She got improved. She was found to have severe pulmonary hypertension. She was treated with IV diuretics for the heart failure. The IV Lasix was switched to p.o. She was also started on Entresto. LV ejection fraction was around 40%. She remained fairly stable throughout the hospital course. Because of her severe pulmonary hypertension and the significant dyspnea on exertion, pulmonology was consulted. Discharge Summary: Patient is being discharged home today. She will be continued on the medications as mentioned below. She had a brief episode of atrial fibrillation at the time of her presentation. However she did not have a ny recurrence of atrial fibrillation during the hospital stay. The atrial arrhythmia was thought to be related to ischemia. So it was decided not to put her on long-term oral anticoagulation. Need to consider an event monitor as an outpatient. She was found to have acute on chronic kidney disease. Her BUN came down to 38 today. She will have a repeat BMP in the office. Physical Exam Narrative: EXAM NARRATIVE: GENERAL: The patient is alert and oriented times three. Not in any acute distress. Obese HEENT: No significant pallor, icterus or lymphadenopathy.Oral cavity: There are no mucous membrane lesions. NECK: Trachea appears to be central. No masses noted. No JVD or thyromegaly appreciated. RESPIRATORY: Chest is symmetrical. No intercostals muscle retraction or any accessory muscle activation. There is no chest wall tenderness. Breath sounds are heard bilaterally. No rales or rhonchi heard. No evidence of any consolidation. BREASTS: Deferred. HEART: The heart sounds are normal. No S3 or S4. No significant murmurs. No pericardial rub ABDOMEN: No vessel pulsations or distention. No tenderness. No organomegaly appreciated. Bowel sounds are normally heard. : Deferred. RECTAL: Deferred. LYMPHATIC: No lymphadenopathy noted in the neck or groin. EXTREMITIES: No edema or cyanosis. No clubbing. MUSCULOSKELETAL: No acute joint deformities or swelling SKIN: There are no significant rashes or ecchymosis NEUROPSYCHIATRIC: The patient is alert and oriented x3. Appears to be in a good mood. No tremors or rigidity noted. Urinary Catheter Management^: Guido: Cath Placed During This Visit: yes, but has since been removed by the nurse Reason for Continuing Indwelling Catheter: Accurate Measurement of Urinary Output in Critically Ill Patients Urinary Catheter Date of Insertion: 04/29/20 Date Urinary Catheter Removed: 05/03/20 Time Urinary Catheter Discontinued: 18:30 Discharge Data Data Completed and Pending: Completed Studies During Hospitalization Category Date Time Status CXRP [XR chest 1V portable [id number]] R outine Exams 05/03/20 10:05 Completed XR chest 1V dannie ble [id number] Urgent Exams 04/29/20 06:13 Completed NM pul vent and p erfus* [id number] Routi ne Nuc Med 05/03/20 16:18 Completed CV echo complete* [id number] Routine Ultrasound 04/29/20 12:16 Completed US venous duplex lower extremity bi lat [CV venous Ultrasound 05/02/20 16:15 [place] [id number]] Routine Pending at discharge Category Date Time Status OPEN HEARTH FURNACE OPERATOR request for service Stat Exams 04/29/20 06:07 Taken KARYNA Profile Rheum atology Stat Lab 05/05/20 18:04 Ordered Cyclic Citrullina lee Peptide Stat Lab 05/05/20 18:05 Ordered Rheumatoid Factor Routine Lab 05/05/20 18:04 Ordered Urine Culture Rou lia Lab 05/04/20 05:00 Results Labs from last 24 hours 05/05/20 05/05/20 05/05/20 16:29 11:28 06:12 Sodium Potassium Chloride Carbon Dioxide Anion Gap BUN Creatinine GFR Calculation Glucose POC Glucose 177 259 174 Calculated Osmolal ity Calcium Urine Color Urine Appearance Urine pH Ur Specific Gravit y Urine Protein Urine Glucose (UA) Urine Ketones Urine Blood Urine Nitrate Urine Bilirubin Urine Urobilinogen Ur Leukocyte Astrid ase Urine RBC Urine WBC Ur Squamous Epith Cells Ur Transition Epit h Cell Urine Bacteria Hyaline Casts Urine Mucus 05/05/20 05/04/20 05/04/20 06:05 20:01 05:00 Sodium 132 L Potassium 4.0 Chloride 95 L Carbon Dioxide 23 Anion Gap 18.0 BUN 38 H Creatinine 1.2 H GFR Calculation Not Reportable Glucose 168 H POC Glucose 269 Calculated Osmolal ity 275 L Calcium 9.4 Urine Color Yellow Urine Appearance Hazy A Urine pH 5 Ur Specific Gravit y 1.010 Urine Protein Neg Urine Glucose (UA) Norm Urine Ketones Negative Urine Blood Neg Urine Nitrate Negative Urine Bilirubin Neg Urine Urobilinogen Norm Ur Leukocyte Astrid ase Trace H Urine RBC 0-4 H Urine WBC 10-15 H Ur Squamous Epith Cells 0-4 H Ur Transition Epit h Cell 0-4 Urine Bacteria 3+ H Hyaline Casts 0-4 H Urine Mucus Trace Vitals: Last Vital Signs Temp 98.0 F 05/05/20 16:00 Pulse 100 05/05/20 16:00 Resp 15 05/05/20 16:00 BP 122/71 05/05/20 16:00 Pulse Ox 96 05/05/20 16:00 Discharge Plan Discharge Patient Disposition: Home Condition: Stable Prescriptions: New isosorbide mononitrate 20 mg Tablet 20 mg PO DAILY 30 Days Qty: 30 RF: 5 clopidogrel 75 mg Tablet 75 mg PO DAILY 30 Days Qty: 30 RF: 5 sulfamethoxazole-trimethoprim 800-160 mg Tablet 1 tab PO BID 7 Days Qty: 14 RF: 0 metoprolol tartrate 25 mg Tablet 12.5 mg PO BID 30 Days Qty: 30 RF: 0 Entresto 24-26 mg Tablet 1 tab PO BID 30 Days Qty: 60 RF: 1 pantoprazole 40 mg Tablet,Delayed Release (Dr/Ec) 40 mg PO DAILY 30 Days RF: 0 potassium chloride 20 mEq tablet extended release 20 meq PO DAILY 30 Days Qty: 30 RF: 0 Lasix 80 mg tablet 80 mg PO BID 30 Days Qty: 60 RF: 0 Continued lecithin 1,200 mg Capsule 1,200 mg PO DAILY RF: 0 metformin 500 mg tablet extended release 24 hr 500 mg PO BID RF: 0 Fish Oil 2 cap PO DAILY RF: 0 Vitamin B-12 2 tab PO DAILY RF: 0 niacin 1 tab PO DAILY RF: 0 Discontinued omeprazole 20 mg capsule,delayed release(DR/EC) 20 mg PO BID RF: 0 Discharge Orders: Discharge Order (Routine); Ordered 05/05/20 Ordered By: Ayesha Shea Referrals: Regi Bishop MD [Physician] - ([facility] will be calling to schedule a cardiology followup with Dr. Bishop to be seen in approx. 3 weeks, If you don't hear from them by tomorrow mid morning, please give them a call. Thank you) Sierra Day FNP [Nurse Practitioner] - 1 week ([facility] will be calling to schedule a post procedure followup with CRISTHIAN Seay to be seen in 1 week, If you don't hear from them by tomorrow mid morning, please give them a call. Thank you) Jasen Mariscal MD [Physician] - 2 weeks ([facility] will be calling to schedule a pulmonary followup with Dr. Mariscal to be seen in 2 weeks, If you don't hear from them by tomorrow mid morning, please give them a call. Thank you) Discharge Diet: Cardiac Discharge Activity: Increase activity as tolerated Patient Instructions: Heart Failure (DC), Left Heart Catheterization (DC), Urinary Tract Infection in Women (DC) Activity Restrictions/Additional Instructions: Please make an appointment to be seen at the [facility] by the nurse practitioner this test today. Appointment with Dr. Bishop in 3 weeks Coding Level of Care Code Acute Window Shade Cutter And Mounter for g Fwd Diagnoses ST elevation myocardial infarction (STEMI) I21.02 Involved coronary artery: LAD coronary artery Pulmonary edema with congestive heart failure I50.1 Hypertension I10 Hypertension type: essential hypertension Diabetes mellitus E11.65 Diabetes mellitus complication status: with hyperglycemia Diabetes mellitus residential insulin use: without residential use Diabetes mellitus type: type 2 Acute kidney injury superimposed on chronic kidney disease N17.9; N18.9 Severe pulmonary arterial systolic hypertension I27.21 Elevated white blood cell count D72.828 Leukocytosis type: other Urinary tract infection N39.0 Hematuria presence: without hematuria Urinary tract infection type: site unspecified
--- NOTE | 2020-05-05 18:13 | P.CONIM_ITS ---
Providers/Reason For Consult Consulting Physican/Specialty*: Pulmonary critical care medicine Reason for Consult*: Pulmonary pretension Attending Physician: Regi Bishop MD Primary Care Provider: Ayleen Moreno MD History of Present Illness History of Present Illness ONESIMO HAMEED is a 80 year old female who presents to the hospital with acute coronary syndrome. The patient underwent cardiac catheterization and PCI of proximal LAD. During the hospitalization the patient also developed pulmonary edema likely secondary to left ventricular dysfunction in the setting of cardiac ischemia. Currently the patient is undergoing aggressive diuresis with improvement in her symptoms. The patient had an echocardiogram on April 29 which revealed ejection fraction of 40% with global left ventricular hypokinesis. There was grade 1 diastolic dysfunction. Interestingly her RVSP was 93 mmHg. The right ventricle was normal in size and function there was no evidence of cor pulmonale or right ventricular hypertrophy. The right atrial size was also normal. The left atrium was moderately increased in size. There were several chest x-rays revealing interstitial infiltrate likely secondary to pulmonary edema. The patient gives me a history of rheumatoid arthritis that was diagnosed many years ago. The patient had undergone bilateral knee and left shoulder replacement. She has only taken NSAIDs for her rheumatologic diseases and has never seen a copier operator or taken any DMA RDs. The patient's daughter is at bedside today. Prior to presenting to the hospital with chest discomfort the patient complained of back pain limiting her mobility but she did not complain of significant shortness of breath. The patient has mild cough right now which was not present 2 weeks ago. The patient has exertional shortness of breath however her oxygen saturation did not go below 88% on ambulation. Review of Systems Narrative: General: No fevers chills night sweats Skin: No rash Neck: There is no neck swelling, mass or swollen glands. Respiratory: Please see my HPI. Cardiovascular: No active chest pain, orthopnea or proximal nocturnal dyspnea, minimal peripheral edema Gastrointestinal: No abdominal pain, nausea, vomiting, melena Musculoskeletal: Bilateral knee and shoulder replacement, no active erythema, joint swelling or pain Neurological: Patient is awake alert and oriented x3, no paralysis, gross motor function is normal. Psychiatric: No anxiety or depression. Meds/Allergies Home Medications and Allergies Home Medications Medication Instructions Recorded Confirmed Last Taken Type Fish Oil 2 cap PO DAILY 04/29/20 04/29/20 Unknown History Vitamin B-12 2 tab PO DAILY 04/29/20 04/29/20 Unknown History lecithin 1,200 mg PO DAILY 04/29/20 04/29/20 Unknown History metformin 500 mg PO BID 04/29/20 04/29/20 Unknown History niacin 1 tab PO DAILY 04/29/20 04/29/20 Unknown History aspirin 81 mg PO .QOD #30 tab 05/05/20 Unknown Rx clopidogrel 75 mg PO DAILY 30 Days #30 tab 05/05/20 Unknown Rx furosemide [Lasix] 80 mg PO BID 30 Days #60 tab 05/05/20 Unknown Rx isosorbide mononitrate 20 mg PO DAILY 30 Days #30 tab 05/05/20 Unknown Rx metoprolol tartrate 12.5 mg PO BID 30 Days #30 tab 05/05/20 Unknown Rx pantoprazole 40 mg PO DAILY 30 Days tab 05/05/20 Unknown Rx potassium chloride 20 meq PO DAILY 30 Days #30 tab 05/05/20 Unknown Rx sacubitril-valsartan [Entresto] 1 tab PO BID 30 Days #60 tab 05/05/20 Unknown Rx sulfamethoxazole-trimethoprim 1 tab PO BID 7 Days #14 tab 05/05/20 Unknown Rx Allergies Allergy/AdvReac Type Severity Reaction Status Date / Time aspirin Allergy Unknown Verified 04/29/20 06:11 Wvtoszc-Ohu-Non Reductase Allergy Unknown Verified 04/29/20 06:11 Inhibitor Current Medications Current Medications Generic Name Dose Route Start Last Admin Trade Name Freq PRN Reason Stop Dose Admin Acetaminophen 650 mg 04/29/20 08:30 05/03/20 23:58 Tylenol PO 650 mg Q6H PRN Administration MILD PAIN Al Hydrox/Mg Hydrox/Simethicone 30 ml 04/29/20 08:30 04/30/20 18:09 Maalox PO 30 ml Q15M PRN Administration INDIGESTION Clopidogrel Bisulfate 75 mg 04/30/20 09:00 05/05/20 08:32 Plavix PO 75 mg DAILY SHERIE Administration Enoxaparin Sodium 40 mg 05/02/20 18:00 05/05/20 17:04 Lovenox SUBCUT 40 mg Q24H SHERIE Administration Furosemide 60 mg 05/04/20 16:00 05/05/20 17:03 Lasix IVP 60 mg Q8H SHERIE Administration Insulin Aspart 0 unit 04/30/20 08:00 05/05/20 17:06 Novolog SUBCUT 4 unit TIDWM SHERIE Administration Protocol Insulin Aspart 0 unit 04/29/20 21:45 05/04/20 20:37 Novolog SUBCUT 10 unit BEDTIME SHERIE Administration Protocol Isosorbide Mononitrate 20 mg 04/29/20 15:15 05/05/20 08:32 Ismo PO 20 mg DAILY SHERIE Administration Magnesium Hydroxide 30 ml 04/29/20 08:30 05/05/20 17:11 Milk Of Magnesia PO 30 ml DAILY PRN Administration CONSTIPATION Metoprolol Tartrate 12.5 mg 04/29/20 22:00 05/05/20 17:05 Lopressor PO 12.5 mg BID SHERIE Administration Pantoprazole Sodium 40 mg 05/01/20 09:00 05/05/20 08:32 Protonix PO 40 mg DAILY SHERIE Administration Sacubitril/Valsartan 1 each 05/03/20 20:32 05/05/20 17:06 Entresto 24-26 Mg PO 1 each BID SHERIE Administration Trimethoprim/Sulfamethoxazole 1 tab 05/04/20 18:00 05/05/20 17:06 Bactrim Ds PO 1 tab BID SHERIE Administration Protocol PFSH Acute PFSH: Medical History Acute kidney injury superimposed on chronic kidney disease Her kidney function remained fairly stable. The latest BUN was 38 with a creatinine of 1.2. Diabetes mellitus The blood sugar is fairly under control. She was treated with as needed insulin. Hypertension The antihypertensive medications were optimized during the hospital stay. Obesity Severe pulmonary arterial systolic hypertension Patient is echocardiogram revealed features of severe pulmonary hypertension with a pulmonary artery peak systolic pressure of 92 mmHg. She has a history of rheumatoid arthritis. Exact etiology of the pulmonary hypertension is not clear. Left ventricular diastolic dysfunction and diastolic heart failur e could be a contributing factor. Stunt Driver, Dr. Mariscal was consulted. The recommendation was to evaluate for any continued tissue disorder. It was thought to be appropriate to do further work-up as an outpatient. Surgical History Status post total shoulder arthroplasty Social History Smoking and tobacco status: former smoker Alcohol intake: never Vitals/I&O/Wt Last Vital Signs Temp 98.0 F 08/03/20 16:00 Pulse 100 05/05/20 16:00 Resp 15 05/05/20 16:00 BP 122/71 05/05/20 16:00 Pulse Ox 96 05/05/20 16:00 05/05/20 05/05/20 05/05/20 06:59 14:59 22:59 Intake Total 240 / 1560 500 / 500 Output Total 1900 / 3600 980 / 980 Balance -1660 / -2040 -480 / -480 Physical Exam Narrative: EXAM NARRATIVE: General: Patient is awake alert and oriented, in no acute distress. HEENT: Pupil bilateral equal and symmetric, light reflex present, extraocular muscle movement intact, no deformity of the nose Respiratory: Inspection: No visible deformity of the chest wall, no scar Palpation: Trachea is mildly deviated to the right, bilateral symmetric expansion, bilateral symmetric vocal fremitus present Percussion: Bilateral tympanic percussion note both anterior and posteriorly Auscultation: Bilateral fine crackles at the posterior lung bases Cardiovascular: Regular rate and rhythm, S1-S2 present, no murmur, mild peripheral edema Abdomen: Soft, nontender, distended from obesity, positive bowel sound Musculoskeletal: Well-healed scar from previous bilateral knee replacements Skin: No rash Lymphatic: The axillary and inguinal lymph node groups are not examined Neuro: Mental status is normal, no gross cranial nerve deficit, normal motor and coordination. Urinary Catheter Management^: Guido: Cath Placed During This Visit: yes, but has since been removed by the nurse Reason for Continuing Indwelling Catheter: Accurate Measurement of Urinary Output in Critically Ill Patients Urinary Catheter Date of Insertion: 04/29/20 Date Urinary Catheter Removed: 05/03/20 Time Urinary Catheter Discontinued: 18:30 Data Micro: Micro: Microbiology 05/04/20 05:00 Urine Culture - Pr eliminary Urine,Clean Catch Gram Negative R ods Other Data: Attestation for Other Data: I personally reviewed and interpreted the following: Other data: I have reviewed the patient laboratory, microbiology, radiology data A&P Assessment and plan (1) Severe pulmonary arterial systolic hypertension: The patient has severe pulmonary artery systolic pressure elevation on the echocardiogram. However, there are several inconsistencies. The patient does not give significant history of shortness of breath prior to presenting to the hospital. There is no evidence of RV hypertrophy or right atrial size or p ressure elevation on the echocardiogram. The patient gives history of rheumatoid arthritis which can be associated with pulmonary hypertension. However, the patient has never been treated with drug modifying agents. I will obtain rheumatoid factor, anti-CCP and KARYNA antibodies. Her VQ scan ruled out any evidence of chronic thromboembolic pulmonary hypertension. I am going to obtain an echocardiogram when the patient comes back and sees me in 2 weeks time. I have discussed the possibility of right heart catheterization with the patient and her daughter and they are in agreement. Status: Acute (2) Coronary artery disease with recent acute coronary syndrome: The patient suffered from acute coronary syndrome resulting in reduction of LV function and pulmonary edema. Patient to follow-up with Dr. Shea as outpatient. Thank you for letting me participate in this patient's care. Status: Acute Coding Level of Care Code Acute Nitrocellulose Operator for Satish Huggins Diagnoses Severe pulmonary arterial systolic hypertension I27.21 Coronary artery disease with recent acute coronary syndrome I25.10; I24.9
[2020-05-05 18:18] VITALS: BP 122/71; PULSE 100; RESP 15; TEMP 36.7; O2SAT 96
--- NOTE | 2020-05-05 19:00 | PC.NURSE ---
Dr. Shea verbally instructed patient to stop lisinopril and to come to [facility] on to see CRISTHIAN Esquivel.
[2020-05-07 12:45] LABS: COMPLEMENT COMPONENT C3C 174 mg/dL (83-193); COMPLEMENT COMPONENT C4C 37 mg/dL (15-57)
[2020-05-07 13:13] LABS: Cyclic Citrullinated Peptide <16 UNITS
[2020-05-07 13:44] LABS: COMPLEMENT, TOTAL (CH50) >60 U/mL (31-60)
[2020-05-07 15:39] LABS: THYROID PEROXIDASE ANTIBODIES <1 IU/mL (<9)
[2020-05-08 11:40] LABS: CENTROMERE B ANTIBODY <1.0 NEG AI (<1.0 NEG); JO-1 ANTIBODY <1.0 NEG AI (<1.0 NEG); RNP ANTIBODY <1.0 NEG AI (<1.0 NEG); SCL-70 ANTIBODY <1.0 NEG AI (<1.0 NEG); SJOGREN'S ANTIBODY (SS-A) <1.0 NEG AI (<1.0 NEG); SM ANTIBODY <1.0 NEG AI (<1.0 NEG)
[2020-05-08 15:00] LABS: ANA SCREEN, IFA NEGATIVE (NEGATIVE)
[2020-05-10 23:50] LABS: DNA AB (DS) CRITHIDIA,IFA NEGATIVE (NEGATIVE)
== END 2020-05-05 19:20 | disposition home or self-care (01) | DRG 246 ==
LOC: ER 07:27 → CCL 07:28 → ICU 08:34 → MEDSURG 04-30 21:28 → CSU 05-01 16:30
PROVIDERS: Family Medicine; Internal Medicine Cardiovascular Disease; Internal Medicine Critical Care Medicine; Admitting Provider Internal Medicine Cardiovascular Disease; Emergency Provider Internal Medicine Cardiovascular Disease; PCP Family Medicine; Visit Provider Internal Medicine Cardiovascular Disease
PROC: 027135Z Dilation of Coronary Artery, Two Arteries with Two Drug-eluting Intraluminal Devices, Percutaneous Approach (ICD-10-PCS; principal; 2020-04-29 08:30)
PROC: 027135Z Dilation of Coronary Artery, Two Arteries with Two Drug-eluting Intraluminal Devices, Percutaneous Approach (ICD-10-PCS; 2020-04-29 08:30)
DX: I21.02 ST elevation (STEMI) myocardial infarction involving left anterior descending coronary artery (principal); J81.0 Acute pulmonary edema; I50.23 Acute on chronic systolic (congestive) heart failure; N17.9 Acute kidney failure, unspecified; N39.0 Urinary tract infection, site not specified; E11.65 Type 2 diabetes mellitus with hyperglycemia; E11.9 Type 2 diabetes mellitus without complications; I11.0 Hypertensive heart disease with heart failure; Z79.84 Long term (current) use of oral hypoglycemic drugs; I27.21 Secondary pulmonary arterial hypertension; E66.9 Obesity, unspecified; Z68.39 Body mass index [BMI] 39.0-39.9, adult; Z87.891 Personal history of nicotine dependence; I25.110 Atherosclerotic heart disease of native coronary artery with unstable angina pectoris
CPT/HCPCS: 12345; 36415; 36416; 36600; 51702; 71045; 78014; 80048; 80051; 80053; 81001; 81003; 82565; 82810; 82962; 83880; 83986; 84484; 84520; 85025; 85347; 85378; 86431; 87077; 87086; 87186; 93005; 93306; 93454; 93970; 94060; 94660; 96372; 96375; 99283; A9540; A9567; C1725; C1769; C1874; C1887; C1894; C9606; J1644; J1650; J1815; J1940; J2250; J3010; J3246; J3490; J7030; Q9967

== ENCOUNTER → 2020-05-08 10:29 | Outpatient (BNVA) | payer MEDICARE, BC, SELFPAY | PROVIDERS: PCP Family Medicine; Visit Provider Nurse Practitioner Family | DX: I24.9 Acute ischemic heart disease, unspecified (principal); I25.10 Atherosclerotic heart disease of native coronary artery without angina pectoris | CPT/HCPCS: 80048 ==

== ENCOUNTER 2020-06-17 13:43 | Outpatient (CLI) | payer MEDICARE, BC, SELFPAY ==
--- NOTE | 2020-06-17 14:15 | USCV_ITS ---
ONESIMO HAMEED Age: 80 Gender: F : 1940 Exam Date: 06/17/2020 14:20 Ordering Phys: Jasen Mariscal MD Technologist: Eleanor Hernandez Exam Location: [facility] [place] Indication: PHTN BP: 100 / 64 HR: 62 Rhythm: Sinus Technical Quality: Adequate MEASUREMENTS (Male / Female) Normal Values 2D ECHO LV Diastolic Diameter PLAX 4.1 cm 4.2 - 5.9 / 3.9 - 5.3 cm LV Systolic Diameter PLAX 3.4 cm LV Chamber Size 4.5 cm IVS Diastolic Thickness 1.5 cm 0.6 - 1.0 / 0.6 - 0.9 cm IVS Systolic Thickness 2.0 cm LVPW Diastolic Thickness 1.6 cm 0.6 - 1.0 / 0.6 - 0.9 cm LVPW Systolic Thickness 1.9 cm RV Chamber Size 3.0 cm LVOT Diameter 2.0 cm LV Ejection Fraction 2D Teich 36.6 % LV Ejection Fraction MOD 2C 44.3 % LV Ejection Fraction 2C AL 52.8 % LA Diameter 4.8 cm LA Width 3.3 cm LA Height 4.5 cm RA Width 3.3 cm RA Height 4.1 cm Aorta at Sinotubular Diameter 3.5 cm M-MODE LV Diastolic Diameter MM 4.9 cm 4.2 - 5.9 / 3.9 - 5.3 cm LV Systolic Diameter MM 3.5 cm LV Ejection Fraction MM Teich 55.7 % IVS Diastolic Thickness MM 1.1 cm 0.6 - 1.0 / 0.6 - 0.9 cm IVS Systolic Thickness MM 1.6 cm LVPW Diastolic Thickness MM 1.4 cm 0.6 - 1.0 / 0.6 - 0.9 cm LVPW Systolic Thickness MM 2.0 cm RV Diastolic Diameter MM 2.7 cm Aortic Annulus Diameter 3.0 cm LA Ao Ratio MM 1.6 MV E Point Septal Separation 0.8 cm DOPPLER AV Peak Velocity 139.0 cm/s LVOT Peak Velocity 66.0 cm/s AV Area Cont Eq vti 1.5 cm squared AV Area Cont Eq pk 1.6 cm squared MV Area PHT 3.1 cm squared Mitral E to A Ratio 0.5 MV E' Velocity 5.0 cm/s Mitral E to MV E' Ratio 9.9 Mitral E to LV E' Lateral Ratio 10.3 Mitral E to LV E' Septal Ratio 9.5 TR Peak Velocity 230.6 cm/s TR Peak Gradient 21.3 mmHg TR Mean Velocity 177.8 cm/s TR Mean Gradient 13.7 mmHg TR Velocity Time Integral 64.5 cm TV Peak E Velocity 61.0 cm/s Right Atrial Pressure 3.0 mmHg Pulmonary Artery Systolic Pressu 24.3 mmHg PV Peak Velocity 77.0 cm/s RV Acceleration Time 0.1 s RV Ejection Time 0.3 s RV AcT/ET 0.3 FINDINGS Left Ventricle Normal left ventricular size and systolic function, EF 55%. Mild left ventricular hypertrophy. Grade I/IV diastolic dysfunction (abnormal relaxation filling pattern), normal to mildly elevated filling pressures. Right Ventricle The right ventricle is normal in size and function. Right Atrium The right atrium is normal in size. Left Atrium The left atrium is normal in size. Mitral Valve Trace to mild mitral valve regurgitation. Aortic Valve No gross abnormalities noted Tricuspid Valve Trace tricuspid valve regurgitation. Pulmonic Valve Pulmonic valve not well visualized. Pericardium Normal pericardium without effusion. Aorta Normal ascending aorta dimension. CONCLUSIONS Normal left ventricular size and systolic function, EF 60 %. Mild left ventricular hypertrophy. Grade I/IV diastolic dysfunction (abnormal relaxation filling pattern), normal to mildly elevated filling pressures. Trace to mild mitral valve regurgitation. Trace tricuspid valve regurgitation. Estimated pulmonary artery peak systolic pressure 24 mmHg. There is no pericardial effusion. There are no intracardiac masses. Comparison with the previous study from 7 05/30/2020 is difficult because of the difference in the technical quality. The PA pressure estimation in the previous study, appears to be a technical error Dr Ayesha Shea MD [facility] (Electronically Signed) Final Date: 17 June 2020 20:51 S
== END 2020-06-17 13:44 | disposition home or self-care (01) ==
LOC: US 13:46
PROVIDERS: PCP Family Medicine; Visit Provider Internal Medicine Critical Care Medicine
DX: I27.20 Pulmonary hypertension, unspecified (principal); I51.7 Cardiomegaly; I51.9 Heart disease, unspecified
CPT/HCPCS: 93306